=== PATIENT | female | born 1975 | race African-American/Black ===

== ENCOUNTER 2017-03-31 15:09 | Emergency (ER) | payer SELFPAY ==
[2017-03-31] MEDS ORDERED: HYDROcodone/Acetaminophen 7.5/325 mg Tablet ONE (16:27)
[2017-03-31] MEDS ORDERED: Ibuprofen 800 MG TAB ONE (16:27)
== END 2017-03-31 17:21 | disposition home or self-care (01) ==
LOC: ERS 15:09
DX: M25.561 Pain in right knee (principal); I10 Essential (primary) hypertension; E11.9 Type 2 diabetes mellitus without complications; Z79.84 Long term (current) use of oral hypoglycemic drugs; Z79.899 Other long term (current) drug therapy
CPT/HCPCS: 99283

== ENCOUNTER 2017-06-14 14:25 | Emergency (ER) | payer SELFPAY ==
[2017-06-14] MEDS ORDERED: predniSONE 20 MG TAB ONE (16:26)
[2017-06-14] MEDS ORDERED: hydrOXYzine 25 MG TAB ONE ×2 (16:30→16:32)
[2017-06-14] MEDS ORDERED: hydrOXYzine 25 MG TAB PO SCH (16:45)
== END 2017-06-14 16:53 | disposition home or self-care (01) ==
LOC: ERS 14:25
DX: L20.9 Atopic dermatitis, unspecified (principal); E11.9 Type 2 diabetes mellitus without complications; I10 Essential (primary) hypertension; M32.9 Systemic lupus erythematosus, unspecified; Z79.84 Long term (current) use of oral hypoglycemic drugs; Z79.899 Other long term (current) drug therapy
CPT/HCPCS: 99283; J7506

== ENCOUNTER 2017-08-21 17:34 | Emergency (ER) | payer MEDICAID, SELFPAY ==
[2017-08-21] MEDS ORDERED: Lidocaine 1% w/Epinephrine 1:100K 20 ML VIAL ONE (18:23)
[2017-08-21] MEDS ORDERED: Clindamycin 150 MG CAP ONE (19:48)
== END 2017-08-21 20:18 | disposition home or self-care (01) ==
LOC: ERS 17:34
DX: L02.31 Cutaneous abscess of buttock (principal); E11.9 Type 2 diabetes mellitus without complications; I10 Essential (primary) hypertension; M32.9 Systemic lupus erythematosus, unspecified
CPT/HCPCS: 99282; J2001

== ENCOUNTER 2017-08-30 15:20 | Emergency (ER) | payer MEDICAID, SELFPAY ==
[2017-08-30] MEDS ORDERED: Famotidine 20 MG TAB ONE (15:58)
[2017-08-30] MEDS ORDERED: predniSONE 20 MG TAB ONE (15:58)
[2017-08-30] MEDS ORDERED: diphenhydrAMINE 25 MG CAP ONE (15:58)
[2017-08-30] MEDS ORDERED: hydrOXYzine 25 MG TAB ONE (17:02)
== END 2017-08-30 17:49 | disposition home or self-care (01) ==
LOC: ERS 15:20
DX: L50.0 Allergic urticaria (principal); I10 Essential (primary) hypertension; M32.9 Systemic lupus erythematosus, unspecified; E11.9 Type 2 diabetes mellitus without complications
CPT/HCPCS: 99283; J7506

== ENCOUNTER 2017-09-05 18:36 | Emergency (ER) | payer MEDICAID | END 2017-09-05 22:44 | disposition left against medical advice (07) | LOC: ERS 18:36 | DX: Z53.21 Procedure and treatment not carried out due to patient leaving prior to being seen by health care provider (principal) ==

== ENCOUNTER 2017-09-25 10:00 | Outpatient (CLI) | payer MEDICAID | END 2017-09-25 10:01 | disposition home or self-care (01) | LOC: BICRAD 10:00 | PROVIDERS: ATTEND Specialist | DX: M25.50 Pain in unspecified joint; M89.8X6 Other specified disorders of bone, lower leg; M17.12 Unilateral primary osteoarthritis, left knee | CPT/HCPCS: 72052 ==

== ENCOUNTER 2017-12-20 12:52 | Emergency (ER) | payer MEDICAID, SELFPAY ==
[2017-12-20] MEDS ORDERED: diphenhydrAMINE 25 MG CAP ONE (13:43)
[2017-12-20] MEDS ORDERED: predniSONE 20 MG TAB ONE (13:43)
[2017-12-20] MEDS ORDERED: Famotidine 20 MG TAB ONE (13:43)
[2017-12-20] MEDS ORDERED: hydrOXYzine 25 MG TAB ONE (14:38)
== END 2017-12-20 15:24 | disposition home or self-care (01) ==
LOC: ERS 12:52
DX: L50.0 Allergic urticaria (principal); E11.9 Type 2 diabetes mellitus without complications; I10 Essential (primary) hypertension
CPT/HCPCS: 99283; J7506

== ENCOUNTER 2018-01-24 21:02 | Emergency (ER) | payer BC, SELFPAY ==
[2018-01-24] MEDS ORDERED: Ketorolac Tromethamine 30 MG/ML VIAL ONE (22:04)
== END 2018-01-24 22:34 | disposition home or self-care (01) ==
LOC: ERS 21:02
DX: S43.401A Unspecified sprain of right shoulder joint, initial encounter (principal); M65.4 Radial styloid tenosynovitis [de Quervain]; I10 Essential (primary) hypertension; M32.9 Systemic lupus erythematosus, unspecified; X50.0XXA Overexertion from strenuous movement or load, initial encounter; X50.3XXA Overexertion from repetitive movements, initial encounter; Y92.89 Other specified places as the place of occurrence of the external cause
CPT/HCPCS: 96372; J1885

== ENCOUNTER 2018-03-18 07:43 | Outpatient (CLI) | payer BC ==
--- NOTE | 2018-03-18 10:54 | MRI ---
MRI OF THE RIGHT WRIST WITHOUT CONTRAST: INDICATION: Right wrist pain since August of 2017. There is no known injury. TECHNIQUE: Multiplanar, multisequence MR images were obtained of the right wrist. No radiographic or MR compari sons are available. FINDINGS: There is slight ulnar positive configuration of the DRUJ. There is essential perforation of the TFC with a horizontal component extending into the volar and peripheral aspect of the TFC best seen on im age 14 of series 8. Radioulnar ligaments appear intact. There are subchondral cyst-like abnormaliti es involving the ulnar aspect of the proximal lunate with diffuse edema of the lunate carpal bone arianna picious for changes of ulnar compartment abutment. There is slight increased fluid in the extensor c arpal ulnaris tendon sheath consistent with changes of ECU tenosynovitis. Mild edema is also present within the EDC tendon sheath. Remaining extensor tendons are normal appearing. The carpal tunnel c ontents appear within normal limits. FCU and FCR tendons are intact. The intrinsic hand musculature appears intact. There is nonvisualization of the proximal attachment of the long radial lunate and portions of the radialscaphocapitate ligament. Findings are suspicious for a volar capsular injury. There is edema within the surrounding soft tissues. There is a ganglion present along the volar asp ect of the ganglion best seen on image 12 of series 9 measuring approximately 1.3 cm. Scapholunate a nd lunotriquetral ligament, however, appear intact. Posterior mid carpal ligament appears intact. T he dorsal radiocarpal ligament appears intact. IMPRESSION: 1. Findings suggesting ulnar compartment abutment syndrome along with ulnar positive configuration o f the distal radial ulnar joint, triangular fibrocartilage tear, and impaction injury to the lunate. 2. Mild ECU tenosynovitis. 3. Findings suspicious for a volar capsular injury (possibly remote) involving the radioscaphocapita te and long radiolunate ligaments. The radioscaphocapitate ligament appears partially attached consi stent with a grade II sprain. There is a grade III sprain of the long radiolunate ligament. 4. Volar radial ganglion seen near the capsular injury site. 5. Mild EDC tenosynovitis. POS: [facility]
== END 2018-03-18 07:44 | disposition home or self-care (01) ==
LOC: BICMRI 07:43
PROVIDERS: ATTEND Orthopaedic Surgery Hand Surgery
DX: M25.531 Pain in right wrist (principal); S63.591A Other specified sprain of right wrist, initial encounter; M67.431 Ganglion, right wrist; M65.9 Synovitis and tenosynovitis, unspecified

== ENCOUNTER 2018-03-18 12:21 | Emergency (ER) | payer BC ==
[2018-03-18 14:32] LABS: Bilirubin Negative (Negative); Blood, Urine Negative (Negative); Clarity CLEAR (Clear); Glucose, Urine (Dipstick) Negative (Negative); Leukocyte Negative (Negative); Nitrite Negative (Negative); Protein, Urine (Dipstick) Negative (Neg-Trace); Specific Gravity, Urine 1.009 (1.002-1.036); Urobilinogen 0.2 mg/dL (0.2-1.0)
[2018-03-18] MEDS ORDERED: Ibuprofen 200 MG TAB ONE (14:57)
== END 2018-03-18 13:49 | disposition home or self-care (01) ==
LOC: ERS 12:21
DX: R51 Headache (principal); M25.561 Pain in right knee; M25.511 Pain in right shoulder; I10 Essential (primary) hypertension; Z79.899 Other long term (current) drug therapy; Z79.84 Long term (current) use of oral hypoglycemic drugs
CPT/HCPCS: 81003; 87804; 99284

== ENCOUNTER 2018-04-03 08:51 | Outpatient (CLI) | payer BC | END 2018-04-03 08:52 | disposition home or self-care (01) | LOC: BICMAMMO 08:51 | PROVIDERS: ATTEND Transplant Surgery | DX: Z12.31 Encounter for screening mammogram for malignant neoplasm of breast (principal) | CPT/HCPCS: 77063; 77067 ==

== ENCOUNTER 2018-05-29 07:42 | Outpatient (CLI) | payer BC ==
--- NOTE | 2018-05-29 10:12 | MRI ---
MRI CERVICAL SPINE: History: Cervical radiculopathy. Technique: Multiplanar, multisequence noncontrast enhanced MRI images were obtained of the cervical s pine. FINDINGS: The spinal cord is unremarkable with no evidence of cord masses or lesions. C1-2: Unremarkable. C2-3: Unremarkable. C3-4: Unremarkable. C4-5: There is a mild broad based disc bulge. No significant degree of central or neural foraminal na rrowing seen. C5-6: Unremarkable. C6-7: There is a minimal broad based disc bulge not significantly compressing the thecal sac. The celeste ral foramen are patent. ' C7-T1: Unremarkable. IMPRESSION: Mild C4-5 and C6-7 disc bulges without evidence of significant central stenosis. No evidence of neura l foraminal narrowing seen. POS: [facility]
== END 2018-05-29 07:43 | disposition home or self-care (01) ==
LOC: BICMRI 07:42
PROVIDERS: ATTEND Orthopaedic Surgery Hand Surgery
DX: M50.121 Cervical disc disorder at C4-C5 level with radiculopathy (principal)
CPT/HCPCS: 72141

== ENCOUNTER 2018-06-03 10:42 | Outpatient (CLI) | payer BC ==
[2018-06-03 12:07] LABS: #Basophils 0.1 thou/uL (0.0-0.2); #Eosinphils 0.2 thou/uL (0.0-0.7); #Lymphocytes 2.2 thou/uL (1.20-3.40); #Monocytes 0.4 thou/uL (0.11-0.59); #Neutrophils 7.6 thou/uL (1.40-6.50); %Eosinophils 1.6 % (0.0-10.0); %Lymphocytes 21.4 % (21.0-51.0); %Monocytes 3.3 % (0.0-10.0); %Neutrophils 72.6 % (42.0-75.0); Hemoglobin 13.5 g/dL (12.0-16.0); Mean Corpuscular HGB CONC 33.7 g/dL (32.0-36.0); Mean Corpuscular Hemoglobin 26.3 pg (27.0-31.0); Mean Platelet Volume 7.7 fL (7.4-10.4); Platelet Count 315 thou/uL (130-400); RBC Distribution Width 13.4 % (11.5-14.5); Red Blood Cell (RBC) Count 5.15 mill/uL (4.20-5.40); White Blood Cell (WBC) Count 10.5 thou/uL (4.8-10.8)
== END 2018-06-03 10:43 | disposition home or self-care (01) ==
LOC: LABBT 10:42
PROVIDERS: ATTEND Orthopaedic Surgery Hand Surgery
DX: Z01.812 Encounter for preprocedural laboratory examination (principal); S63.591A Other specified sprain of right wrist, initial encounter
CPT/HCPCS: 85025; 85652

== ENCOUNTER 2018-06-11 05:49 | Day surgery (SDC) | payer BC ==
[2018-06-03 11:11] VITALS: BMI 38.9
[2018-06-11] MEDS ORDERED: CEFAZOLIN 2 GM/50 ML BAG ONE (06:26)
[2018-06-11] MEDS ORDERED: EPINEPHrine 1 MG/ML AMP ONE (06:53)
[2018-06-11] MEDS ORDERED: Bacitracin Zinc Ointment 30 gm TUBE ONE (06:53)
[2018-06-11] MEDS ORDERED: Bupivacaine PF 0.5% 30 ML VIAL ONE (06:53)
[2018-06-11] MEDS ORDERED: Midazolam HCl 2 mg/2 ml Vial ONE (06:54)
[2018-06-11] MEDS ORDERED: Fentanyl 100 MCG/2 ML VIAL ONE ×3 (07:05→11:06)
[2018-06-11] MEDS ORDERED: Bupivacaine HCl 0.5%/Epinephrine 1:200,000/PF 30 ml Vial ONE (10:18)
[2018-06-11] MEDS ORDERED: Ketorolac Tromethamine 30 MG/ML VIAL ONE ×2 (10:48→12:43)
[2018-06-11] MEDS ORDERED: PROPOFOL 200 MG/20 ML VIAL ONE (12:43)
[2018-06-11] MEDS ORDERED: Esmolol 100 MG/10 ML VIAL ONE (12:43)
[2018-06-11] MEDS ORDERED: Dexamethasone 20 MG/5 ML VIAL ONE (12:43)
[2018-06-11] MEDS ORDERED: Glycopyrrolate 0.2 MG/ML 5 ML SYRINGE ONE (12:43)
[2018-06-11] MEDS ORDERED: Ondansetron PF 4 MG/2 ML Vial ONE (12:43)
[2018-06-11] MEDS ORDERED: ePHEDrine/0.9% NaCl/PF SYRINGE 50 mg/10 ml ONE (12:43)
[2018-06-11] MEDS ORDERED: PHENYLEPHRINE-NS 100 MCG/ML 10 ML SYRINGE ONE (12:43)
[2018-06-11] MEDS ORDERED: HYDROcodone/Acetaminophen 5/325 mg Tablet ONE (14:08)
--- NOTE | 2018-06-13 09:03 | OP ---
DATE OF PROCEDURE: 06/11/2018 PREOPERATIVE DIAGNOSES: 1. Right lunate chondral tear. 2. Volar capsule tear, small ulnar aspect. 3. Volar radial ganglion. 4. Central to radial aspect transfer because tear is approximately 6.5 mm with non-repairable to ulnolunate impingement. POSTOPERATIVE DIAGNOSES: 1. Right lunate chondral tear. 2. Volar capsule tear, small ulnar aspect. 3. Volar radial ganglion. 4. Central to radial aspect transfer because tear is approximately 6.5 mm with non-repairable to ulnolunate impingement. PROCEDURES PERFORMED: 1. Arthroscopic synovectomy, right wrist. 2. Right wrist radial and volar ganglion arthroscopic resection. 3. Arthroscopic triangular fibrocartilage tear debridement. 4. Open volar capsule tear resection. 5. Ulnar shortening osteotomy, Rayhack technique. ESTIMATED BLOOD LOSS: 25 mL. FINDINGS: 1. Lunate to ulnar side chondral tear indicative of ulnocarpal impingement. 2. Volar triquetral chondral tear with capsule flap. 3. Volar 1.0 cm erythematous sac with stalk of ganglion consistent with volar ganglion, 2 mm ulnar joint positive without instability, stable lunotriquetral joint. DESCRIPTION OF PROCEDURE: After successful general endotracheal anesthesia by [place] anesthesia, the limb was prepped and draped. The patient had a block given out as part of this procedure. The patient had the operative standard wrist arthroscopy towel, in-line traction performed. Prep and drape accomplished along with time-out appropriately. Establishment of standard 3-4, 6U, 6R portals and then began panoramic view of the wrist which was distorted because of synovitis in all compartments, so arthroscopic synovectomy was completed. Once this was done, we could see 6 mm of central to radial tear of the entire fibrocartilage which was irreparable, so we debrided it with a shaver to a stable rim. Then, there was a volar flap tear coming from the ulnar aspect of the triquetrum while the lunotriquetral joint was intact, but there were some chondral loss on the ulnar aspect of lunate. We resected this chondral tear and we then attempt to resect the care of the joint capsule, but could not reach this, so we performed a small mini-arthrotomy and then removed this. Before we did the arthrotomy, however, we saw on the radial side a stalk and erythema consistent with a ganglion, so we resected this with a scope with a shaver as well. Once we had performed an arthrotomy and end-to-end repair, we resected the small capsular flap tear. There was no instability seen directly and then we deflated the tourniquet to close the joint. A 2-0 Vicryl undyed was used for this interrupted pattern and we used a 3-0 Vicryl to close the retinaculum over the stiff compartment and then the skin was closed subcutaneously with 4-0 Monocryl and 4-0 nylon for the epidermis. We then directed our attention to the patient's ulna, 2 mm positive wrist. We inflated the tourniquet, kept in in-line traction of the arm and made a zigzag incision to reach the periosteum. Periosteum was opened directly with [place] blade. We exposed periosteum and made sure we had not entered the sternal joint. We did a Raytec osteotomy using the standard three holes proximal, cutting plate guide with a saw oscillating mode. We then removed the 2 mm piece, placed the final plate on along with coapting the compression device, compressed it so that we can anatomically close and then place the remaining 3 screws distal to include a lag screw across the osteotomy site. Radiographs showed anatomic position with no hardware migration. We released the tourniquet and obtained hemostasis. We then closed the fascia with running 0- Vicryl undyed, subcutaneous tissue with 3-0 Monocryl undyed, and skin reapproximated with 4-0 nylon interrupted mattress pattern. Bulky dressing was applied along with a sugar-tong splint. The patient left the operating room without evidence of anesthetic complications. Job ID: [id number]
== END 2018-06-11 14:45 | disposition home or self-care (01) ==
LOC: SDC 05:49
PROVIDERS: ATTEND Orthopaedic Surgery Hand Surgery
PROC: 0RBN4ZZ Excision of Right Wrist Joint, Percutaneous Endoscopic Approach (ICD-10-PCS; principal; 2018-06-11)
PROC: 0PSK04Z Reposition Right Ulna with Internal Fixation Device, Open Approach (ICD-10-PCS; principal; 2018-06-11)
DX: S63.591A Other specified sprain of right wrist, initial encounter (principal); M67.431 Ganglion, right wrist; M25.831 Other specified joint disorders, right wrist; M65.88 Other synovitis and tenosynovitis, other site; E11.9 Type 2 diabetes mellitus without complications; G43.909 Migraine, unspecified, not intractable, without status migrainosus; M32.9 Systemic lupus erythematosus, unspecified; M50.123 Cervical disc disorder at C6-C7 level with radiculopathy; Z88.2 Allergy status to sulfonamides; Z88.8 Allergy status to other drugs, medicaments and biological substances; Z91.048 Other nonmedicinal substance allergy status; Z79.899 Other long term (current) drug therapy; Z79.84 Long term (current) use of oral hypoglycemic drugs
CPT/HCPCS: 76001; 96372; 96374; C1713; J0171; J0670; J1100; J1885; J2250; J2405; J2704; J3010; S0020

== ENCOUNTER 2018-09-11 11:47 | Emergency (ER) | payer BC ==
[2018-09-11] MEDS ORDERED: Dexamethasone 4 mg/ml Vial ONE (15:18)
[2018-09-11] MEDS ORDERED: Ketorolac Tromethamine 30 MG/ML VIAL ONE ×2 (15:18→15:21)
[2018-09-11] MEDS ORDERED: Diazepam 5 MG TAB ONE (15:19)
[2018-09-11] MEDS ORDERED: Dexamethasone 10 MG/ML VIAL ONE (15:37)
== END 2018-09-11 15:58 | disposition home or self-care (01) ==
LOC: ERS 11:47
DX: M54.42 Lumbago with sciatica, left side (principal); E11.9 Type 2 diabetes mellitus without complications; I10 Essential (primary) hypertension; Z79.84 Long term (current) use of oral hypoglycemic drugs; Z79.899 Other long term (current) drug therapy
CPT/HCPCS: 96372; J1100; J1885

== ENCOUNTER 2018-10-17 09:35 | Outpatient (CLI) | payer BC ==
--- NOTE | 2018-10-17 09:58 | RAD ---
TWO VIEWS CHEST: DATE: 10/17/2018. PROVIDED CLINICAL HISTORY: Cough and shortness of breath. FINDINGS: Comparison 09/07/2012. Cardiac and mediastinal silhouette is within normal limits. Lungs appear aj r. No pleural fluid or pneumothorax apparent. Calcified granulomata are again seen in the right par amediastinal region. IMPRESSION: No evidence for an acute cardiopulmonary process. POS: [facility]
== END 2018-10-17 09:36 | disposition home or self-care (01) ==
LOC: BICRAD 09:35
PROVIDERS: ATTEND Specialist
DX: R05 Cough (principal); R06.02 Shortness of breath
CPT/HCPCS: 71046

== ENCOUNTER 2018-11-11 12:34 | Outpatient (CLI) | payer BC ==
--- NOTE | 2018-11-11 16:53 | MRI ---
MRI OF THE RIGHT WRIST WITHOUT CONTRAST: Indication: History of right wrist surgery in May 2018 with closed, nondisplaced fracture of the scaphoid. Comparison: Prior MR of the right wrist, 03-18-18. FINDINGS: There is motion artifact that slightly limits imaged detail. There is post procedural change involvi ng the distal ulnar shaft producing susceptibility artifact that slightly limits evaluation of the la teral aspect of the ulnar carpal joint. There is reduction in the extent of the ulnar positive configuration at the DRUJ. There is also less prominence of the previously seen central perforation with associated horizontal tear component invol ving the body of the triangular fibrocartilage indicative of interval repair. The radioulnar ligament s and the peripheral styloid attachments of the TFC are intact. Scapholunate, lunotriquetral ligaments are intact. Previously seen volar radial carpal wrist ligament ous injury appears to have intervally healed or has undergone repair since the prior exam. Carpal ali gnment is normal. Subchondral cyst like abnormalities of the lunate are roughly stable. Visualized aspects of the ECU tendon appear within normal limits. The remaining extensor tendons appe ar within normal limits. The carpal tunnel contents as well as the ulnar neural vasculature appears w ithin normal limits. No definite acute fracture is evident. IMPRESSION: 1. No acute fracture demonstrated involving the scaphoid. 2. Post procedural change involving the distal ulna with improved alignment at the DRUJ. 3. Post procedure change of interval repair of the previously see TFC tear. The central perforation i nvolving the TFC is less prominent. Horizontal component is less prominent. 4. Improvement in the ECU and EDC tenosynovitis. 5. Stable subchondral cyst like abnormalities involving the lunate, likely reflective of changes of p rior ulnar abutment. 6. Less T2 signal abnormality involving the radiolunate and radioscaphocapitate ligaments of the vola r radial carpal joint indicative of either interval healing or repair. POS: [facility]
== END 2018-11-11 12:35 | disposition home or self-care (01) ==
LOC: TBSIIMAG 12:34
PROVIDERS: ATTEND Orthopaedic Surgery Hand Surgery
DX: S62.001A Unspecified fracture of navicular [scaphoid] bone of right wrist, initial encounter for closed fracture (principal); M65.4 Radial styloid tenosynovitis [de Quervain]; Z98.890 Other specified postprocedural states

== ENCOUNTER 2018-11-20 07:15 | Emergency (ER) | payer BC ==
[2018-11-20] MEDS ORDERED: Ketorolac Tromethamine 30 MG/ML VIAL ONE (09:26)
[2018-11-20] MEDS ORDERED: Metoclopramide HCl 10 MG/2 ML VIAL ONE (09:26)
[2018-11-20] MEDS ORDERED: diphenhydrAMINE 50 MG/ML VIAL ONE (09:27)
[2018-11-20] MEDS ORDERED: Cyclobenzaprine 10 MG TAB ONE (10:49)
== END 2018-11-20 11:37 | disposition home or self-care (01) ==
LOC: ERS 07:15
DX: R51 Headache (principal); M54.5 Low back pain; E11.9 Type 2 diabetes mellitus without complications; I10 Essential (primary) hypertension; Z79.899 Other long term (current) drug therapy; Z79.84 Long term (current) use of oral hypoglycemic drugs
CPT/HCPCS: 96365; 96366; 96375; J1200; J1885; J2765

== ENCOUNTER 2018-11-21 08:39 | Outpatient (CLI) | payer BC ==
--- NOTE | 2018-11-21 09:49 | CT ---
CT CHEST WITH IV CONTRAST HISTORY: Pulmonary nodule COMPARISON: None FINDINGS: No mediastinal, hilar or axillary mass or lymphadenopathy is seen. There is no evidence of aneurysmal dilatation of the thoracic aorta. No pleural or pericardial effusions are identified. No pneumothoraces, lobar consolidation or pulmonary nodules/masses are seen. There is a small area of pa tchy groundglass infiltrate in the lingula. There are mild degenerative changes in the spine. Upper abdominal tomograms demonstrate changes of cholecystectomy and a calcified granuloma in the spleen. IMPRESSION: 1. No evidence of lung mass or nodule. 2. Small area of patchy groundglass infiltrate in the lingula.
[2018-11-21] MEDS ORDERED: ISOVUE-370 76%-LOCM 1 ML ONE (11:38)
== END 2018-11-21 08:40 | disposition home or self-care (01) ==
LOC: BICCT 08:39
PROVIDERS: ATTEND Orthopaedic Surgery Hand Surgery
DX: R91.1 Solitary pulmonary nodule (principal); R91.8 Other nonspecific abnormal finding of lung field
CPT/HCPCS: 71260; Q9966

== ENCOUNTER 2019-02-18 12:46 | Emergency (ER) | payer BC ==
[2019-02-18] MEDS ORDERED: Ketorolac Tromethamine 30 MG/ML VIAL ONE (13:49)
[2019-02-18] MEDS ORDERED: Metoclopramide HCl 10 MG/2 ML VIAL ONE (13:49)
[2019-02-18] MEDS ORDERED: diphenhydrAMINE 25 MG CAP ONE (13:49)
[2019-02-18] MEDS ORDERED: Ondansetron PF 4 MG/2 ML Vial ONE ×2 (13:49→15:09)
[2019-02-18] MEDS ORDERED: Acetaminophen 500 MG TAB ONE (13:49)
--- NOTE | 2019-02-18 14:27 | CT ---
Exam: Head CT scan without IV contrast: HISTORY: Headache, migraine headache FINDINGS: No focal mass or midline shift. No intra or extra-axial hemorrhage. Sinuses and mastoids are clear of acute process. IMPRESSION: No significant acute intracranial process. No mass or bleed.
[2019-02-18] MEDS ORDERED: Morphine 4 MG/ML VIAL ONE (15:08)
[2019-02-18] MEDS ORDERED: Dexamethasone 10 MG/ML VIAL ONE (15:09)
== END 2019-02-18 16:50 | disposition home or self-care (01) ==
LOC: ERS 12:46
DX: G43.909 Migraine, unspecified, not intractable, without status migrainosus (principal); F41.9 Anxiety disorder, unspecified; E11.9 Type 2 diabetes mellitus without complications; I10 Essential (primary) hypertension; Z79.899 Other long term (current) drug therapy; Z79.84 Long term (current) use of oral hypoglycemic drugs
CPT/HCPCS: 70450; 96365; 96375; 96376; J1100; J1885; J2270; J2405; J2765; Q0163

== ENCOUNTER 2019-02-22 16:18 | Emergency (ER) | payer BC ==
[2019-02-22] MEDS ORDERED: HYDROcodone/Acetaminophen 10/325 mg Tablet ONE (19:01)
[2019-02-22] MEDS ORDERED: HYDROcodone/Acetaminophen 5/325 mg Tablet ONE (19:06)
[2019-02-22] MEDS ORDERED: Acetaminophen 500 MG TAB ONE (19:06)
== END 2019-02-22 19:17 | disposition home or self-care (01) ==
LOC: ERS 16:18
DX: M54.12 Radiculopathy, cervical region (principal); G89.29 Other chronic pain; G43.909 Migraine, unspecified, not intractable, without status migrainosus; E11.9 Type 2 diabetes mellitus without complications; F41.9 Anxiety disorder, unspecified; Z79.899 Other long term (current) drug therapy; Z79.84 Long term (current) use of oral hypoglycemic drugs
CPT/HCPCS: 99283

== ENCOUNTER 2019-03-04 12:38 | Emergency (ER) | payer BC ==
[2019-03-04] MEDS ORDERED: Metoclopramide HCl 10 MG/2 ML VIAL ONE (13:24)
[2019-03-04] MEDS ORDERED: Acetaminophen 500 MG TAB ONE (13:24)
[2019-03-04] MEDS ORDERED: diphenhydrAMINE 50 MG/ML VIAL ONE (13:24)
[2019-03-04 13:32] LABS: #Basophils 0.1 thou/uL (0.0-0.2); #Eosinphils 0.1 thou/uL (0.0-0.7); #Lymphocytes 2.2 thou/uL (1.20-3.40); #Monocytes 0.4 thou/uL (0.11-0.59); #Neutrophils 6.1 thou/uL (1.40-6.50); %Basophils 1.2 % (0.0-1.0); %Eosinophils 1.6 % (0.0-10.0); %Lymphocytes 25.1 % (21.0-51.0); %Monocytes 4.4 % (0.0-10.0); %Neutrophils 67.8 % (42.0-75.0); Hemoglobin 12.9 g/dL (12.0-16.0); Mean Corpuscular HGB CONC 33.9 g/dL (32.0-36.0); Mean Corpuscular Hemoglobin 26.6 pg (27.0-31.0); Mean Corpuscular Volume 78.3 fL (78.0-98.0); Mean Platelet Volume 7.9 fL (7.4-10.4); Platelet Count 262 thou/uL (130-400); RBC Distribution Width 12.5 % (11.5-14.5); Red Blood Cell (RBC) Count 4.87 mill/uL (4.20-5.40); White Blood Cell (WBC) Count 8.9 thou/uL (4.8-10.8)
--- NOTE | 2019-03-04 13:41 | CT ---
CT HEAD WITHOUT IV CONTRAST COMPARISON: 02/18/2019 HISTORY: Headache and blurred vision right side. TECHNIQUE: Axial CT imaging at 5 mm intervals from vertex through skull base without contrast FINDINGS: There is no evidence of an acute infarction, hemorrhage, mass effect, or midline shift. The ventricul ar system is normal in size, shape, and position. Visualized paranasal sinuses are clear. Osseous structures appear intact. CT head is stable compared to prior exam. IMPRESSION: 1. No acute intracranial abnormality demonstrated.
[2019-03-04 14:04] LABS: ALT (SGPT) 20 U/L (8-55); AST (SGOT) 21 U/L (5-34); Alkaline Phosphatase 90 U/L (40-150); Anion Gap 14 mmol/L (10-20); BUN (Urea Nitrogen) 21 mg/dL (7.0-18.7); Bilirubin, Total 0.2 mg/dL (0.2-1.2); Calc. Creatinine Clearance 0 mL/min (70-130); Calcium 9.9 mg/dL (7.8-10.44); Carbon Dioxide 24 mmol/L (22-29); Chloride 100 mmol/L (98-107); Estimated GFR-MDRD 38; Glucose 199 mg/dL (70-105); Potassium 4.2 mmol/L (3.5-5.1); Sodium 134 mmol/L (136-145)
[2019-03-04] MEDS ORDERED: Ketorolac Tromethamine 30 MG/ML VIAL ONE (15:00)
--- NOTE | 2019-03-08 15:07 | EKG ---
Test Reason : Blood Pressure : / mmHG Vent. Rate : 089 BPM Atrial Rate : 089 BPM P-R Int : 162 ms QRS Dur : 084 ms QT Int : 366 ms P-R-T Axes : 045 007 026 degrees QTc Int : 445 ms Normal sinus rhythm Low voltage QRS Confirmed by LALIT GLEASON DO ([id number]), copy editor ADRIENNE BARTLETT ([id number]) on 03/08/2019 3:07:35 PM Referred By: Confirmed By:LALIT GLEASON DO
== END 2019-03-04 15:50 | disposition home or self-care (01) ==
LOC: ERS 12:38
DX: E86.0 Dehydration (principal); R51 Headache; N17.9 Acute kidney failure, unspecified; E11.9 Type 2 diabetes mellitus without complications; M32.9 Systemic lupus erythematosus, unspecified; I10 Essential (primary) hypertension; F41.9 Anxiety disorder, unspecified; Z79.84 Long term (current) use of oral hypoglycemic drugs; Z79.899 Other long term (current) drug therapy
CPT/HCPCS: 36415; 36416; 70450; 80053; 84484; 85025; 93005; 96361; 96374; 96375; J1200; J1885; J2765

== ENCOUNTER 2019-03-17 12:35 | Outpatient (CLI) | payer BC ==
--- NOTE | 2019-03-17 13:13 | RAD ---
EXAM: 2 views of the left knee HISTORY: Left knee pain COMPARISON: None FINDINGS: No knee effusion is seen. There is no evidence of acute fracture or dislocation. Mild trico mpartmental osteophytes are seen. IMPRESSION: Mild left knee osteoarthritis
--- NOTE | 2019-03-17 13:13 | RAD ---
2 views right knee: 03/17/2019 COMPARISON: None HISTORY: Knee pain FINDINGS: No fracture or dislocation. There is mild posterior patellar osteophyte formation. There is mild medial compartment narrowing. No acute fracture or dislocation. IMPRESSION: No acute osseous abnormality. Mild degenerative change.
--- NOTE | 2019-03-17 13:14 | RAD ---
2 views of the lumbar spine: 03/17/2019 HISTORY: Low back pain with bilateral radiculopathy involving the lower extremities FINDINGS: Clips in the right upper quadrant suggest prior cholecystectomy. Lumbar pedicles appear int act on frontal imaging. There is lower lumbar spine facet hypertrophy, left greater than right, involving the L4-5 and L5-S1 levels. There is disc space narrowing at L5-S1. No acute fracture. IMPRESSION: Lumbar spine degenerative change as above.
--- NOTE | 2019-03-17 13:21 | RAD ---
EXAM: 5 views of the cervical spine HISTORY: Cervicalgia with numbness and tingling in both hands for 5 years COMPARISON: None FINDINGS: AP, lateral, oblique, and open mouth odontoid views of the cervical spine shows normal heig ht and alignment of the vertebral bodies and intervertebral discs without fracture or subluxation. No degenerative changes are seen. No prevertebral soft tissue swelling is seen. Alignment is unchang ed with flexion and extension. IMPRESSION: No significant cervical spine abnormality.
== END 2019-03-17 12:36 | disposition home or self-care (01) ==
LOC: BICRAD 12:35
PROVIDERS: ATTEND Nurse Practitioner
DX: M25.561 Pain in right knee (principal); M25.562 Pain in left knee; M54.5 Low back pain; M54.2 Cervicalgia; M47.816 Spondylosis without myelopathy or radiculopathy, lumbar region; M17.0 Bilateral primary osteoarthritis of knee
CPT/HCPCS: 72050; 72100

== ENCOUNTER 2019-03-20 08:07 | Outpatient (CLI) | payer OTHER ==
--- NOTE | 2019-03-20 10:41 | MRI ---
MRI OF RIGHT SHOULDER: DATE: 03/20/2019. PROVIDED CLINICAL HISTORY: Right shoulder pain. FINDINGS: There is low-grade partial-thickness bursal surface tearing involving the posterior supraspinatus ten don approximately 2.5 cm from the footplate. The components of the rotator cuff appear otherwise int act. The longhead biceps tendon appears intact and normally located. The glenoid labrum and glenohumeral articular cartilage are suboptimally evaluated in the absence of joint distension but appear grossly normal. The amount of fluid within the glenohumeral joint appear s physiologic. Acromioclavicular osteoarthrosis is demonstrated with mass effect upon the subjacent supraspinatus. There is a physiologic amount of subacromial subdeltoid bursal fluid. Rotator cuff muscular volume a ppears preserved. No focal concerning regional marrow or muscular signal abnormality apparent. IMPRESSION: 1. Low-grade partial thickness bursal surface tearing involving the posterior supraspinatus tendon. 2. Acromioclavicular joint osteoarthrosis with mass effect upon the subjacent supraspinatus. POS: [facility]
== END 2019-03-20 08:08 | disposition home or self-care (01) ==
LOC: BICMRI 08:07
PROVIDERS: ATTEND Family Medicine
DX: S46.911D Strain of unspecified muscle, fascia and tendon at shoulder and upper arm level, right arm, subsequent encounter (principal); M19.011 Primary osteoarthritis, right shoulder

== ENCOUNTER 2019-04-08 07:58 | Outpatient (CLI) | payer BC ==
--- NOTE | 2019-04-08 10:58 | CT ---
EXAM: CT right forearm without contrast HISTORY: Right forearm fracture. Evaluate for nonhealing COMPARISON: None TECHNIQUE: Multiple contiguous axial images were obtained and a CT of the right forearm without contr ast. Sagittal and coronal reformats were performed. FINDINGS: A fracture is seen of the distal third of the ulnar diaphysis. This is spanned with a plate and screws. The middle screw extends into the region of the fracture. Persistent lucency is seen about the fracture consistent with nonunion. A small amount of surrounding callus is seen surrounding the fracture. IMPRESSION: Nonunion of ulnar fracture.
== END 2019-04-08 07:59 | disposition home or self-care (01) ==
LOC: SCSCT 07:58
PROVIDERS: ATTEND Orthopaedic Surgery Hand Surgery
DX: S52.291K Other fracture of shaft of right ulna, subsequent encounter for closed fracture with nonunion (principal)

== ENCOUNTER 2019-04-13 20:30 | Outpatient (CLI) | payer BC | END 2019-04-13 20:31 | disposition home or self-care (01) | LOC: SLEEPLAB 20:30 | PROVIDERS: ATTEND Nurse Practitioner Family | DX: G47.33 Obstructive sleep apnea (adult) (pediatric) (principal); G47.429 Narcolepsy in conditions classified elsewhere without cataplexy; R53.83 Other fatigue; E11.9 Type 2 diabetes mellitus without complications; Z68.41 Body mass index [BMI] 40.0-44.9, adult | CPT/HCPCS: 95810 ==

== ENCOUNTER 2019-05-30 09:05 | Outpatient (CLI) | payer BC ==
[2019-05-30 12:11] LABS: Bacteria/HPF None Seen HPF (None Seen); Bilirubin Negative (Negative); Blood, Urine Negative (Negative); Clarity Clear (Clear); Glucose, Urine (Dipstick) Greater than 1000 mg/dL (Negative); Leukocyte Negative Leu/uL (Negative); Nitrite Negative (Negative); Protein, Urine (Dipstick) Negative (Neg-Trace); RBC/HPF 0-3 HPF (0-3); Squamous Epithelial 0-3 HPF (0-3); Urobilinogen Normal mg/dL (Less than 2); WBC/HPF 0-3 HPF (0-3)
[2019-05-30 12:14] LABS: Hemoglobin 13.3 g/dL (12.0-16.0); Mean Corpuscular HGB CONC 32.2 g/dL (32.0-36.0); Mean Corpuscular Hemoglobin 24.6 pg (27.0-31.0); Mean Corpuscular Volume 76.3 fL (78.0-98.0); Mean Platelet Volume 7.5 fL (7.4-10.4); Platelet Count 372 thou/uL (130-400); Red Blood Cell (RBC) Count 5.42 mill/uL (4.20-5.40); White Blood Cell (WBC) Count 10.4 thou/uL (4.8-10.8)
[2019-05-30 12:26] LABS: Anion Gap 15 mmol/L (10-20); BUN (Urea Nitrogen) 26 mg/dL (7.0-18.7); Calc. Creatinine Clearance 0 mL/min (70-130); Calcium 9.9 mg/dL (7.8-10.44); Carbon Dioxide 22 mmol/L (22-29); Chloride 99 mmol/L (98-107); Estimated GFR-MDRD 36; Glucose 124 mg/dL (70-105); Potassium 4.3 mmol/L (3.5-5.1); Sodium 132 mmol/L (136-145)
[2019-05-30 13:30] LABS: Band 5 % (5-11); Lymphocytes 15 % (21-51); MDiff Complete? YES; Microcytosis SLIGHT = 6-15 cells (100X) (0-5/hpf); Monocytes 7 % (0-10); Neutrophil 68 % (42-75); Platelet Morphology Comment Appears Adequate; Polychromasia SLIGHT = 2-3 cells (100X) (0-2/hpf); Reactive Lymphocytes 5 % (0-10); Target Cells SLIGHT = 2-5 cells (100X) (0-1/hpf)
--- NOTE | 2019-05-30 17:59 | EKG ---
Test Reason : Blood Pressure : / mmHG Vent. Rate : 078 BPM Atrial Rate : 078 BPM P-R Int : 178 ms QRS Dur : 078 ms QT Int : 376 ms P-R-T Axes : 068 051 024 degrees QTc Int : 428 ms Normal sinus rhythm Normal ECG When compared with ECG of 04-MAR-2019 12:48, No significant change was found Confirmed by Beka EASON ([id number]) on 05/30/2019 5:59:15 PM Referred By: REG Confirmed By:Beka EASON
== END 2019-05-30 09:06 | disposition home or self-care (01) ==
LOC: LABBT 09:05
PROVIDERS: ATTEND Orthopaedic Surgery Hand Surgery
DX: Z01.818 Encounter for other preprocedural examination (principal); S52.201D Unspecified fracture of shaft of right ulna, subsequent encounter for closed fracture with routine healing; Z98.890 Other specified postprocedural states
CPT/HCPCS: 80048; 81001; 85025; 93005; 93010

== ENCOUNTER 2019-06-03 07:05 | Inpatient (IN) | payer BC ==
[2019-06-03] MEDS ORDERED: Bacitracin Zinc Ointment 30 gm TUBE ONE (09:17)
[2019-06-03] MEDS ORDERED: Bupivacaine PF 0.5% 30 ML VIAL ONE (09:17)
[2019-06-03] MEDS ORDERED: Sodium Chloride 0.9% 0 ML ONE (09:17)
[2019-06-03] MEDS ORDERED: Fentanyl 100 MCG/2 ML VIAL ONE ×3 (09:19→15:40)
[2019-06-03] MEDS ORDERED: Midazolam HCl 2 mg/2 ml Vial ONE ×2 (09:19)
[2019-06-03] MEDS ORDERED: Lidocaine 1% PF 5 ML VIAL ONE (10:24)
[2019-06-03] MEDS ORDERED: Ondansetron PF 4 MG/2 ML Vial ONE (10:24)
[2019-06-03] MEDS ORDERED: Bupivacaine HCl 0.5%/Epinephrine 1:200,000/PF 30 ml Vial ONE (10:24)
[2019-06-03] MEDS ORDERED: PROPOFOL 200 MG/20 ML VIAL ONE (10:24)
[2019-06-03] MEDS ORDERED: Ketorolac Tromethamine 30 MG/ML VIAL ONE (10:24)
[2019-06-03] MEDS ORDERED: Dexamethasone 20 MG/5 ML VIAL ONE (10:24)
[2019-06-03] MEDS ORDERED: Thrombin 5000 UNITS/5 ML VIAL ONE ×2 (11:56→13:26)
[2019-06-03] MEDS ORDERED: CEFAZOLIN 1 GM VIAL ONE (13:15)
[2019-06-03] MEDS ORDERED: Ondansetron PF 4 MG/2 ML Vial IV PRN (14:49)
[2019-06-03] MEDS ORDERED: Acetaminophen 325 MG TAB PO PRN (14:49)
[2019-06-03] MEDS ORDERED: Milk Of Magnesia 30 ML UDCUP PO PRN (14:49)
[2019-06-03] MEDS ORDERED: Fentanyl 100 MCG/2 ML VIAL SLOW IVP PRN (14:49)
[2019-06-03] MEDS ORDERED: Morphine 4 MG/ML VIAL SLOW IVP PRN (14:49)
[2019-06-03] MEDS ORDERED: traMADol HCl 50 MG TAB PO PRN (14:49)
[2019-06-03] MEDS ORDERED: Meperidine HCl/PF 25 MG/ML VIAL IM PRN (14:52)
--- NOTE | 2019-06-03 14:58 | RAD ---
RIGHT FOREARM TWO VIEWS: HISTORY: Hardware removal and bone graft. COMPARISON: None. FINDINGS: Multiple views of the right forearm were submitted for interpretation. A plate and screws is seen in the mid portion of the ulna. There appears to be a small bone fragment along the mid portion of a fra cture that is spanned by the plate and screws. POS: [facility]
[2019-06-03] MEDS ORDERED: Communication Order-Pharmacy FS SCH (15:00)
[2019-06-03 19:20] VITALS: BMI 40.8
[2019-06-03] MEDS: Vancomycin 1.5 GRAM/300 ML BAG 1.5 GM in Premix Bag 1 BAG IVPB SCH (19:43)
[2019-06-03] MEDS: HYDROcodone/Acetaminophen 5/325 mg Tablet PO PRN (20:09)
[2019-06-03] MEDS: Aspirin 81 mg Enteric Coated Tablet PO SCH (21:28)
[2019-06-03] MEDS ORDERED: ALPRAZolam 1 MG TAB PO PRN (22:22)
[2019-06-03] MEDS ORDERED: PROVENTIL INHALER 6.7 G (200 INHALATIONS) INH PRN (22:22)
[2019-06-03] MEDS ORDERED: ASPIRIN PO PRN (22:24)
[2019-06-03] MEDS ORDERED: CAFFEINE PO PRN (22:24)
[2019-06-03] MEDS ORDERED: cloNIDine 0.1 MG TAB PO PRN (22:25)
[2019-06-03] MEDS ORDERED: Gabapentin 100 MG CAP PO SCH (22:45)
[2019-06-03] MEDS ORDERED: Montelukast Sodium 10 mg Tablet PO SCH (22:45)
[2019-06-03] MEDS ORDERED: hydrOXYzine 25 MG TAB PO SCH (22:45)
[2019-06-03] MEDS ORDERED: Famotidine 20 MG TAB PO SCH (22:45)
[2019-06-04] MEDS: HYDROcodone/Acetaminophen 5/325 mg Tablet PO PRN ×3 (05:18→18:44)
[2019-06-04 06:23] LABS: #Basophils 0.1 thou/uL (0.0-0.2); #Eosinphils 0.2 thou/uL (0.0-0.7); #Lymphocytes 2.7 thou/uL (1.20-3.40); #Monocytes 0.8 thou/uL (0.11-0.59); %Basophils 0.7 % (0.0-1.0); %Eosinophils 1.6 % (0.0-10.0); %Lymphocytes 25.3 % (21.0-51.0); %Monocytes 7.4 % (0.0-10.0); Hemoglobin 11.1 g/dL (12.0-16.0); Mean Corpuscular HGB CONC 32.1 g/dL (32.0-36.0); Mean Corpuscular Hemoglobin 25.3 pg (27.0-31.0); Mean Corpuscular Volume 78.8 fL (78.0-98.0); Mean Platelet Volume 7.2 fL (7.4-10.4); Platelet Count 295 thou/uL (130-400); RBC Distribution Width 13.2 % (11.5-14.5); Red Blood Cell (RBC) Count 4.39 mill/uL (4.20-5.40); White Blood Cell (WBC) Count 10.8 thou/uL (4.8-10.8)
--- NOTE | 2019-06-04 08:38 | OP ---
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 Gross motion at the plate with screws, that are no longer functional, and a plate that is loose. PROCEDURES PERFORMED: 1. Removal of nonunion material to include resection of bone 2.5 mm on either side and the previous 1.5 mm opening leaving a split of at least a 5 mm minimal central and almost 1 cm direct volar gap (too big for our radial based bone graft.). 2. Open treatment of nonunion of the of the ulna to removal of previous deep implant (ulna RAYHACK plate). 3. Open treatment with iliac crest bone graft and Synthes long 9-hole plate (long in the previous plate by 2 holes on either side of the construct). 4. Application of long-arm splint. SPECIMEN REMOVED: Necrotic nonunion area, leaving with almost 12 mm wide at its outer cortex, 8 mm at its inner cortex bone defect. TOURNIQUET TIME: 70 minutes. BLOOD LOSS: 250 mL. DESCRIPTION OF PROCEDURE: After successful general LMA technique, the limb was prepped and draped. We also prepped the iliac crest site. We injected the iliac crest with 20 mL of 0.5% Marcaine to begin the wrist portion. We inflated the tourniquet to 250 mmHg pressure after exsanguinated the limb, placed the limb in an arthroscopy type ozuna in order to visualize the better position. The plate was put in and then removed the previous scar as we made our incision through skin and subcutaneous tissue down to fascia. The plate was clearly loose and it was a nonunion hooks fibrinous material and copious amounts of fluid, consistent with possible early pseudojoint. We then removed the plate. We found at that point it was 1.5 to 2 mm gap formation and they were not in association with each other. We then debrided this area using the excisional technique, used a rongeur to take down soft tissue as well as some bone, used a curette to re-establish the canal for at least 2 cm depth on both proximal and distal fracture, used a small bone cutter to cut a few shards of sharp edges and drilled, first a K-wire, then a 2-0 drill to create canaliculi for bone regrowth. Once we finished this, we did petal the distal 5-mm periarticular region, made our final measurement, and it was approximately 14 mm deep, 8 mm wide at the greatest outer and ulnar dimension and prepared bone graft after we made incision of and noticed the cortex was not strong enough for true tricortical or bicortical wedge of this size. We then made a standard 5-cm approach over the iliac crest, beginning with 2 cm proximal to the anterior superior portion. We carried through skin and subcutaneous tissue, fascia, and tagged the fascia. We then the fascia from the iliac wing fpc between the posterior and anterior normal limits. Using a saw blade, I cut a piece of bone that was slightly bigger in dimension as needed. We took it to the back table, denuded of all soft tissue, placed anticoagulant in the wound along with normal saline to prevent bleeding and then placed this piece of wedge next to the bone and began to remove excess, so it fit, and the excess that was removed was placed inside the defect for bone grafting. Once we had done the appropriate shape, it was wedged in tight with the plate holding the reduction without screw fixation. We then placed the plate in compression around this piece and it extruded slightly 1 mm, leaving a 1.5 mm rim, extended proximally and a 2 to 2.5 mm rim extending distally, but the entire inner surface was 95% covered completely. Once we had secured this with the proper drill measure screw technique with the Synthes small-frag set, a small-frag plate allowed multiple rotation without gapping, the ulnar head had maintained its bony position which was much less than of the radius and the patient had the wound closed in multiple layers to include thrombin and Gelfoam in the defect from the pelvis with a running #1 Vicryl and then the fascia was closed with the same #1 Vicryl and the skin was reapproximated with 4-0 nylon. The patient left the operating room without evidence of anesthetic or operative complication with a splint long-arm on the left. Job ID: [id number]
[2019-06-04] MEDS ORDERED: LINAGLIPTIN PO SCH (09:00)
[2019-06-04] MEDS ORDERED: ICOSAPENT ETHYL PO SCH (09:00)
[2019-06-04] MEDS ORDERED: TETANUS AND DIPHTHERIA TOX/PF 0.5 ML DISP.SYRIN IM SCH (09:00)
[2019-06-04] MEDS ORDERED: EMPAGLIFLOZIN PO SCH (09:00)
[2019-06-04] MEDS ORDERED: ARMODAFINIL 200 MG PO SCH (09:00)
[2019-06-04] MEDS: Famotidine 20 MG TAB PO SCH ×2 (09:59→20:32)
[2019-06-04] MEDS: Gabapentin 100 MG CAP PO SCH ×2 (09:59→20:32)
[2019-06-04] MEDS: CeleCOXIB 100 MG CAP PO SCH (10:00)
[2019-06-04] MEDS: Hydrochlorothiazide 25 MG TAB PO SCH (10:00)
[2019-06-04] MEDS: metFORMIN 500 MG TAB PO SCH ×2 (10:00→18:41)
[2019-06-04] MEDS: Aspirin 81 mg Enteric Coated Tablet PO SCH ×2 (10:00→20:31)
[2019-06-04] MEDS: hydrOXYzine 25 MG TAB PO SCH ×2 (10:01→20:39)
[2019-06-04] MEDS: Pioglitazone HCl 15 MG TAB PO SCH (12:00)
[2019-06-04] MEDS: Vancomycin 1.5 GRAM/300 ML BAG 1.5 GM in Premix Bag 1 BAG IVPB SCH (18:43)
[2019-06-04] MEDS: Ibuprofen 200 MG TAB PO PRN (20:39)
[2019-06-04] MEDS ORDERED: Montelukast Sodium 10 mg Tablet PO SCH (21:00)
[2019-06-04] MEDS ORDERED: Rosuvastatin 20 MG TAB PO SCH (21:00)
[2019-06-05] MEDS: HYDROcodone/Acetaminophen 5/325 mg Tablet PO PRN ×2 (08:38→15:00)
[2019-06-05] MEDS: metFORMIN 500 MG TAB PO SCH ×2 (08:45→17:24)
[2019-06-05] MEDS: Pioglitazone HCl 15 MG TAB PO SCH (08:45)
[2019-06-05] MEDS: hydrOXYzine 25 MG TAB PO SCH ×2 (08:45→17:47)
[2019-06-05] MEDS: CeleCOXIB 100 MG CAP PO SCH (08:45)
[2019-06-05] MEDS: Aspirin 81 mg Enteric Coated Tablet PO SCH (08:46)
[2019-06-05] MEDS: Gabapentin 100 MG CAP PO SCH (08:46)
[2019-06-05] MEDS: Hydrochlorothiazide 25 MG TAB PO SCH (08:46)
[2019-06-05] MEDS: Famotidine 20 MG TAB PO SCH (08:46)
[2019-06-05 11:24] VITALS: TEMP 98.3
[2019-06-05] MEDS: Ibuprofen 200 MG TAB PO PRN (15:48)
[2019-06-05 16:10] LABS: Vancomycin, Trough 10.7 ug/mL
[2019-06-05] MEDS: Vancomycin 1.5 GRAM/300 ML BAG 1.5 GM in Premix Bag 1 BAG IVPB SCH (17:24)
--- NOTE | 2019-06-06 01:13 | DIS ---
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 DISCHARGE DIAGNOSES: 1. Failure of implant, RAYHACK device. 2. Nonunion with no healing and evidence of wear on the ulna and gross motion. 3. Diabetes mellitus. 4. Obesity. HOSPITAL COURSE: The patient was admitted on the date of admission, June 03, 2019. After obtaining appropriate medical clearance, she underwent open reduction, removal of implant, bone marrow harvested from the right iliac crest to create almost 1 cm outer cortex and a 4 mm inner cortex wedge tricortical bone with a longer plate in open treatment internal fixation and bone grafting of a nonunion once she had undergone nonunion techniques to prepare the bone. This gave excellent fixation and the bone was left approximately 1 mm, proud to ensure that we had a good wedge fit with slightly more bone than needed. She maintained her ulnar negative height that was seen before the surgery and we debrided any bone that was evidence of a hypertrophic reactive bone from gross motion from the mobile plate. Drain had been placed in the pelvis and it was removed spontaneously doing physical therapy on the date of discharge. She was neurologically intact on date of discharge to include full digit flexion, extension, no stretch plane, intact hip flexion, knee extension, knee flexion, ankle extension and toe extension. There was no stretch pain to lower extremity and no evidence of lateral cutaneous nerve abnormality. With the drain out, dressing still intact and this was a situation for discharge. DISCHARGE DISPOSITION: She will be on a 2000 calorie ADA diet. She will wear the sling when up and out of bed. She can ambulate progressively from 50 feet moving forward, so she already cleared 50 feet shant today and the patient will be given a sling, use ice. Discharge medications in addition to her pre-admission medications are Lortab, 7.5/325 one tablet every 6 hours as needed, it was dispensed #28 and clindamycin 250 mg antibiotics. She is allergic to both Bactrim soft sulfa products. Follow up with us in 1 week in clinic and at that point, she will have a dressing change and further treatment. Job ID: [id number]
== END 2019-06-05 19:42 | disposition home or self-care (01) | DRG 496 ==
LOC: SDC 07:05 → T4-A 17:06
PROVIDERS: ADMIT Orthopaedic Surgery Hand Surgery; ATTEND Orthopaedic Surgery Hand Surgery
PROC: 0PPK04Z Removal of Internal Fixation Device from Right Ulna, Open Approach (ICD-10-PCS; principal; 2019-06-03)
PROC: 0PBK0ZZ Excision of Right Ulna, Open Approach (ICD-10-PCS; 2019-06-03)
PROC: 0PSK04Z Reposition Right Ulna with Internal Fixation Device, Open Approach (ICD-10-PCS; 2019-06-03)
PROC: 0PUK07Z Supplement Right Ulna with Autologous Tissue Substitute, Open Approach (ICD-10-PCS; 2019-06-03)
PROC: 0QB33ZZ Excision of Left Pelvic Bone, Percutaneous Approach (ICD-10-PCS; 2019-06-03)
PROC: 0QB23ZZ Excision of Right Pelvic Bone, Percutaneous Approach (ICD-10-PCS; 2019-06-03)
DX: T84.192A Other mechanical complication of internal fixation device of bone of right forearm, initial encounter (principal); S52.291K Other fracture of shaft of right ulna, subsequent encounter for closed fracture with nonunion; Z68.41 Body mass index [BMI] 40.0-44.9, adult; E66.9 Obesity, unspecified; E11.9 Type 2 diabetes mellitus without complications; Y83.8 Other surgical procedures as the cause of abnormal reaction of the patient, or of later complication, without mention of misadventure at the time of the procedure
CPT/HCPCS: 36415; 36416; 76000; 80202; 85025; C1713; J0670; J0690; J1100; J1885; J2001; J2250; J2270; J2405; J2704; J3010; J3490; S0020

== ENCOUNTER 2019-10-16 11:59 | Outpatient (CLI) | payer BC ==
--- NOTE | 2019-10-16 12:39 | RAD ---
TWO VIEWS LUMBAR SPINE: DATE: 10/16/2019. COMPARISON: None. HISTORY: Pain and radiculopathy. FINDINGS: Five lumbar-type vertebral bodies are present with intact pedicles on frontal imaging. Lateral imagi ng demonstrates facet hypertrophy at L4-5 and L5-S1. There is disk space narrowing at the L5-S1 leve l. At T11-12 and T12-L1, there is mild disk space narrowing and anterior osteophyte formation. No a cute fracture or dislocation. No anterolisthesis or retrolisthesis. IMPRESSION: Lumbar spine degenerative change as above. POS: [facility]
== END 2019-10-16 12:00 | disposition home or self-care (01) ==
LOC: BICRAD 11:59
PROVIDERS: ATTEND Specialist
DX: M54.9 Dorsalgia, unspecified (principal); M47.816 Spondylosis without myelopathy or radiculopathy, lumbar region
CPT/HCPCS: 72100

== ENCOUNTER 2019-11-04 12:40 | Outpatient (CLI) | payer BC ==
--- NOTE | 2019-11-04 13:48 | MRI ---
MRI Lumbar Spine Noncontrast: HISTORY: Arthritis of lumbar spine. Patient states low back pain with pain down bilateral legs. COMPARISON: None FINDINGS: A severely atrophic left kidney is present, but this is a stable finding compared to CT abdomen on . Remainder of the visualized retroperitoneal structures demonstrate a normal MRI appearance. There are several increased T2-weighted signal intensity structures seen in the left ovar y likely due to multiple follicles largest follicle measuring 1.5 cm. Trace amount of fluid is seen adjacent to left ovary likely physiologic in origin. Conus medullaris is normal in morphology and terminates at the L1 level. Mild endplate degenerative change are seen in the L5-S1 level. Normal signal intensity is otherwise d emonstrated in the bone marrow. L1-2: There is no disc bulge or disc herniation. Central spinal canal and neural foramina are patent. L2-3: There is no disc bulge or disc herniation. Central spinal canal and neural foramina are patent. L3-4: There is no disc bulge or disc herniation. Central spinal canal and neural foramina are patent. Mild facet degenerative changes are present. L4-5: There is no disc bulge or disc herniation. Central spinal canal and neural foramina are patent. Mild facet degenerative changes are present. L5-S1: There is loss of intervertebral disc height. A broad-based disc osteophyte complex is present with central disc protrusion. This encroaches on the traversing bilateral S1 nerve roots without significant deformity or displacement of the nerve roots. There is no narrowing of the thecal sac. Fa cet degenerative changes are present at this level with mild encroachment on each neural foramen. IMPRESSION: 1. Degenerative changes lower lumbar spine greatest at the lumbosacral junction. There is no high-gra de central canal or neural foraminal narrowing. The disc bulge with central disc protrusion at the L5-S1 level does encroach on the traversing bilateral S1 nerve roots. 2. Severely atrophic left kidney which is stable compared to study in 2015.
== END 2019-11-04 12:41 | disposition home or self-care (01) ==
LOC: BICMRI 12:40
PROVIDERS: ATTEND Specialist
DX: M47.816 Spondylosis without myelopathy or radiculopathy, lumbar region (principal); M47.817 Spondylosis without myelopathy or radiculopathy, lumbosacral region; M51.27 Other intervertebral disc displacement, lumbosacral region
CPT/HCPCS: 72148

== ENCOUNTER 2020-06-10 06:55 | Outpatient (CLI) | payer BC ==
[2020-06-10 20:25] LABS: SARS-CoV-2 MS2 Positive; SARS-CoV-2 N Gene Negative; SARS-CoV-2 S Gene Negative; SARS-CoV-2 by NAA Not Detected (NotDetected); SARS-CoV-2 orf1ab Negative
== END 2020-06-10 06:56 | disposition home or self-care (01) ==
LOC: LABBT 06:55
PROVIDERS: ATTEND Internal Medicine Gastroenterology
DX: R10.10 Upper abdominal pain, unspecified (principal); K62.5 Hemorrhage of anus and rectum; K21.9 Gastro-esophageal reflux disease without esophagitis; M32.9 Systemic lupus erythematosus, unspecified; R63.5 Abnormal weight gain; Z20.828 Contact with and (suspected) exposure to other viral communicable diseases
CPT/HCPCS: 87635; U0003

== ENCOUNTER 2020-12-01 19:00 | Emergency (ER) | payer BC ==
[2020-12-01 20:58] LABS: #Basophils 0.1 thou/uL (0.0-0.2); #Eosinphils 0.3 thou/uL (0.0-0.7); #Lymphocytes 2.4 thou/uL (1.20-3.40); #Monocytes 0.5 thou/uL (0.11-0.59); #Neutrophils 6.7 thou/uL (1.40-6.50); %Basophils 0.8 % (0.0-1.0); %Eosinophils 2.8 % (0.0-10.0); %Lymphocytes 24.2 % (21.0-51.0); %Monocytes 5.3 % (0.0-10.0); %Neutrophils 66.9 % (42.0-75.0); Hemoglobin 12.2 g/dL (12.0-16.0); Mean Corpuscular HGB CONC 33.7 g/dL (32.0-36.0); Mean Corpuscular Hemoglobin 25.6 pg (27.0-31.0); Mean Platelet Volume 7.7 fL (7.4-10.4); Platelet Count 312 thou/uL (130-400); RBC Distribution Width 15.1 % (11.5-14.5); Red Blood Cell (RBC) Count 4.74 mill/uL (4.20-5.40); White Blood Cell (WBC) Count 10.1 thou/uL (4.8-10.8)
[2020-12-02] MEDS ORDERED: Acetaminophen 500 MG TAB ONE (01:11)
== END 2020-12-02 01:21 | disposition home or self-care (01) ==
LOC: ERS 19:00
DX: M79.89 Other specified soft tissue disorders (principal); R20.2 Paresthesia of skin; E11.9 Type 2 diabetes mellitus without complications; I10 Essential (primary) hypertension; G43.909 Migraine, unspecified, not intractable, without status migrainosus
CPT/HCPCS: 36415; 83880; 85025; 86140; 93970

== ENCOUNTER 2021-03-28 12:20 | Emergency (ER) | payer BC ==
[2021-03-28] MEDS ORDERED: Acetaminophen 325 MG TAB ONE (18:03)
[2021-03-28] MEDS ORDERED: Ketorolac Tromethamine 30 MG/ML VIAL ONE (18:03)
[2021-03-28] MEDS ORDERED: HYDROcodone/Acetaminophen 5/325 mg Tablet ONE (18:03)
[2021-03-28 18:32] LABS: Bilirubin Negative (Negative); Blood, Urine Negative (Negative); Clarity Clear (Clear); Glucose, Urine (Dipstick) Greater than 1000 mg/dL (Negative); Ketone, Urine Negative (Negative); Leukocyte Negative Leu/uL (Negative); Nitrite Negative (Negative); Protein, Urine (Dipstick) Negative (Neg-Trace); Specific Gravity, Urine 1.025 (1.002-1.036); Urobilinogen Normal mg/dL (Less than 2); pH, Urine 5.5 (5.0-9.0)
[2021-03-28 18:33] LABS: Pregnancy Test - Urine (BHCG) Negative (Negative); Pregu Control Background? CLEAR/WHITE (CLR/WHITE); Pregu Control Bar Appear? YES (CONTROL BAR); Specific Gravity 1.025 (1.002-1.036)
== END 2021-03-28 21:09 | disposition home or self-care (01) ==
LOC: ERS 12:20
DX: M54.50 Low back pain, unspecified (principal); R81 Glycosuria; E11.9 Type 2 diabetes mellitus without complications; I10 Essential (primary) hypertension
CPT/HCPCS: 81003; 81025; 96372; 99283; J1885

== ENCOUNTER 2021-06-10 09:54 | Outpatient (CLI) | payer BC | END 2021-06-10 09:55 | disposition home or self-care (01) | LOC: TBSIIMAG 09:54 | PROVIDERS: ATTEND Orthopaedic Surgery Hand Surgery | DX: M87.031 Idiopathic aseptic necrosis of right radius (principal) ==

== ENCOUNTER 2021-06-19 13:06 | Emergency (ER) | payer BC ==
[2021-06-19] MEDS ORDERED: Morphine 4 MG/ML VIAL ONE ×2 (13:56→16:02)
[2021-06-19] MEDS ORDERED: Diazepam 5 MG TAB ONE (13:56)
[2021-06-19] MEDS ORDERED: Ondansetron PF 4 MG/2 ML Vial ONE (13:56)
[2021-06-19 14:03] LABS: #Eosinphils 0.2 thou/uL (0.0-0.7); #Lymphocytes 1.7 thou/uL (1.20-3.40); #Monocytes 0.5 thou/uL (0.11-0.59); #Neutrophils 6.9 thou/uL (1.40-6.50); %Basophils 0.5 % (0.0-1.0); %Eosinophils 2.1 % (0.0-10.0); %Lymphocytes 18.4 % (21.0-51.0); %Monocytes 4.8 % (0.0-10.0); %Neutrophils 74.2 % (42.0-75.0); Hemoglobin 12.4 g/dL (12.0-16.0); Mean Corpuscular HGB CONC 33.6 g/dL (32.0-36.0); Mean Corpuscular Volume 80.4 fL (78.0-98.0); Platelet Count 351 thou/uL (130-400); RBC Distribution Width 12.7 % (11.5-14.5); Red Blood Cell (RBC) Count 4.59 mill/uL (4.20-5.40); White Blood Cell (WBC) Count 9.3 thou/uL (4.8-10.8)
[2021-06-19 14:23] LABS: ALT (SGPT) 13 U/L (8-55); AST (SGOT) 14 U/L (5-34); Albumin 3.6 g/dL (3.5-5.0); Alkaline Phosphatase 95 U/L (40-110); Anion Gap 13 mmol/L (10-20); BUN (Urea Nitrogen) 6 mg/dL (7.0-18.7); Bilirubin, Total 0.3 mg/dL (0.2-1.2); Calc. Creatinine Clearance 0 mL/min (70-130); Calcium 10.2 mg/dL (7.8-10.44); Carbon Dioxide 29 mmol/L (22-29); Chloride 99 mmol/L (98-107); Globulin 3.8 g/dL (2.4-3.5); Glucose 153 mg/dL (70-105); Potassium 3.7 mmol/L (3.5-5.1); Protein, Total 7.4 g/dL (6.0-8.3); Sodium 137 mmol/L (136-145)
== END 2021-06-19 16:21 | disposition home or self-care (01) ==
LOC: ERS 13:06
DX: M54.9 Dorsalgia, unspecified (principal); I10 Essential (primary) hypertension; E11.9 Type 2 diabetes mellitus without complications; G43.909 Migraine, unspecified, not intractable, without status migrainosus; Z79.899 Other long term (current) drug therapy
CPT/HCPCS: 36415; 72132; 80053; 85025; 96374; 96375; 96376; J2270; J2405

== ENCOUNTER 2021-08-01 16:12 | Inpatient (IN) | payer BC ==
[2021-08-01 16:45] LABS: #Basophils 0.1 thou/uL (0.0-0.2); #Eosinphils 0.1 thou/uL (0.0-0.7); #Lymphocytes 2.8 thou/uL (1.20-3.40); #Monocytes 0.9 thou/uL (0.11-0.59); #Neutrophils 12.4 thou/uL (1.40-6.50); %Basophils 0.4 % (0.0-1.0); %Eosinophils 0.5 % (0.0-10.0); %Lymphocytes 17.4 % (21.0-51.0); %Monocytes 5.4 % (0.0-10.0); %Neutrophils 76.4 % (42.0-75.0); Hemoglobin 14.7 g/dL (12.0-16.0); Mean Corpuscular HGB CONC 32.4 g/dL (32.0-36.0); Mean Corpuscular Hemoglobin 24.6 pg (27.0-31.0); Mean Corpuscular Volume 75.9 fL (78.0-98.0); Mean Platelet Volume 7.4 fL (7.4-10.4); Platelet Count 455 thou/uL (130-400); Red Blood Cell (RBC) Count 5.97 mill/uL (4.20-5.40); White Blood Cell (WBC) Count 16.2 thou/uL (4.8-10.8)
[2021-08-01 17:08] LABS: ALT (SGPT) 8 U/L (8-55); AST (SGOT) 10 U/L (5-34); Albumin 4.5 g/dL (3.5-5.0); Alkaline Phosphatase 116 U/L (40-110); Anion Gap 20 mmol/L (10-20); BUN (Urea Nitrogen) 15 mg/dL (7.0-18.7); Bilirubin, Total 0.4 mg/dL (0.2-1.2); Calc. Creatinine Clearance 0 mL/min (70-130); Calcium 10.4 mg/dL (7.8-10.44); Carbon Dioxide 18 mmol/L (22-29); Chloride 96 mmol/L (98-107); Globulin 4.4 g/dL (2.4-3.5); Glucose 193 mg/dL (70-105); Potassium 4.4 mmol/L (3.5-5.1); Protein, Total 8.9 g/dL (6.0-8.3); Sodium 130 mmol/L (136-145)
[2021-08-01] MEDS ORDERED: Ondansetron PF 4 MG/2 ML Vial ONE (19:13)
[2021-08-01 20:52] LABS: Bacteria/HPF 2+ HPF (None Seen); Bilirubin 1+ (Negative); Blood, Urine Negative (Negative); Clarity Clear (Clear); Glucose, Urine (Dipstick) Greater than 1000 mg/dL (Negative); Ketone, Urine 60 mg/dL (Negative); Leukocyte Negative Leu/uL (Negative); Nitrite Negative (Negative); Protein, Urine (Dipstick) 30 mg/dL (Neg-Trace); RBC/HPF 0-3 HPF (0-3); Specific Gravity, Urine 1.032 (1.002-1.036); Squamous Epithelial 0-3 HPF (0-3); WBC/HPF 0-3 HPF (0-3); pH, Urine 5.5 (5.0-9.0)
[2021-08-01] MEDS ORDERED: cefTRIAXone\\ROCEPHIN 2 GM VIAL ONE (21:19)
[2021-08-01 21:37] LABS: SARS-CoV-2 NAA Rapid Test Not Detected (NotDetected)
[2021-08-02] MEDS ORDERED: Ondansetron ODT 4 MG TAB SL PRN (02:15)
[2021-08-02] MEDS ORDERED: Acetaminophen 325 MG TAB PO PRN (02:15)
[2021-08-02] MEDS ORDERED: Ondansetron PF 4 MG/2 ML Vial ONE (02:16)
[2021-08-02] MEDS: Ondansetron PF 4 MG/2 ML Vial IVP PRN ×4 (02:27→19:31)
[2021-08-02] MEDS: Sodium Chloride 0.9% 1,000 ML IV SCH ×5 (02:27→22:24)
[2021-08-02 04:47] VITALS: BMI 42.9
[2021-08-02 06:48] LABS: #Basophils 0.1 thou/uL (0.0-0.2); #Eosinphils 0.1 thou/uL (0.0-0.7); #Lymphocytes 2.2 thou/uL (1.20-3.40); #Monocytes 0.8 thou/uL (0.11-0.59); #Neutrophils 9.3 thou/uL (1.40-6.50); %Basophils 0.5 % (0.0-1.0); %Eosinophils 0.7 % (0.0-10.0); %Lymphocytes 17.4 % (21.0-51.0); %Monocytes 6.6 % (0.0-10.0); %Neutrophils 74.9 % (42.0-75.0); Hemoglobin 12.6 g/dL (12.0-16.0); Mean Corpuscular HGB CONC 32.5 g/dL (32.0-36.0); Mean Corpuscular Hemoglobin 24.7 pg (27.0-31.0); Mean Corpuscular Volume 76.1 fL (78.0-98.0); Mean Platelet Volume 7.6 fL (7.4-10.4); Platelet Count 352 thou/uL (130-400); RBC Distribution Width 12.9 % (11.5-14.5); Red Blood Cell (RBC) Count 5.09 mill/uL (4.20-5.40); White Blood Cell (WBC) Count 12.5 thou/uL (4.8-10.8)
[2021-08-02 07:39] LABS: MDiff Complete? YES; Microcytosis SLIGHT = 6-15 cells (100X) (0-5/hpf); Platelet Morphology Comment Appears Adequate; Polychromasia SLIGHT = 2-3 cells (100X) (0-2/hpf)
[2021-08-02] MEDS ORDERED: Dextrose 50% Abboject 50 ML SYRINGE IVP PRN (09:00)
[2021-08-02] MEDS ORDERED: Insulin Regular 300 UNITS/3 ML VIAL SC PRN ×2 (09:00)
[2021-08-02] MEDS ORDERED: Dextrose 5% in Water 1,000 ML IV PRN (09:00)
[2021-08-02] MEDS: metFORMIN 500 MG TAB PO SCH ×2 (09:47→17:35)
[2021-08-02 10:47] LABS: #Eosinphils 0.1 thou/uL (0.0-0.7); #Lymphocytes 2.1 thou/uL (1.20-3.40); #Monocytes 0.6 thou/uL (0.11-0.59); #Neutrophils 8.1 thou/uL (1.40-6.50); %Basophils 0.4 % (0.0-1.0); %Eosinophils 0.8 % (0.0-10.0); %Lymphocytes 19.3 % (21.0-51.0); %Monocytes 5.7 % (0.0-10.0); %Neutrophils 73.7 % (42.0-75.0); Hemoglobin 12.5 g/dL (12.0-16.0); Mean Corpuscular Hemoglobin 24.1 pg (27.0-31.0); Mean Corpuscular Volume 75.4 fL (78.0-98.0); Mean Platelet Volume 7.4 fL (7.4-10.4); Platelet Count 358 thou/uL (130-400); RBC Distribution Width 12.9 % (11.5-14.5); Red Blood Cell (RBC) Count 5.18 mill/uL (4.20-5.40)
[2021-08-02 11:06] LABS: Hemoglobin A1c 8.2 % (4.0-6.0)
[2021-08-02 11:22] LABS: Anion Gap 18 mmol/L (10-20); BUN (Urea Nitrogen) 12 mg/dL (7.0-18.7); Calc. Creatinine Clearance 102 mL/min (70-130); Calcium 9.1 mg/dL (7.8-10.44); Carbon Dioxide 18 mmol/L (22-29); Chloride 101 mmol/L (98-107); Glucose 128 mg/dL (70-105); Potassium 4.3 mmol/L (3.5-5.1); Sodium 133 mmol/L (136-145)
[2021-08-02] MEDS: Prochlorperazine Maleate 5 MG TAB PO PRN (17:35)
[2021-08-02] MEDS: Empagliflozin 25 MG TAB PO SCH (19:38)
[2021-08-02] MEDS: ALPRAZolam 1 MG TAB PO SCH (19:38)
[2021-08-02] MEDS: Alogliptin 25 MG TAB PO SCH (19:38)
[2021-08-02] MEDS: cefTRIAXone\\ROCEPHIN 2 GM in Sodium Chloride 0.9% 100 ML IVPB SCH (19:45)
[2021-08-02] MEDS: HYDROcodone/Acetaminophen 5/325 mg Tablet PO PRN (19:51)
[2021-08-03] MEDS: Ondansetron PF 4 MG/2 ML Vial IVP PRN ×3 (06:29→20:16)
[2021-08-03] MEDS: HYDROcodone/Acetaminophen 5/325 mg Tablet PO PRN ×3 (06:29→20:14)
[2021-08-03] MEDS: metFORMIN 500 MG TAB PO SCH ×3 (08:03→17:18)
[2021-08-03] MEDS: Mupirocin 2% Ointment 22 GM Tube TOP SCH ×3 (09:17→20:04)
[2021-08-03] MEDS: Sodium Chloride 0.9% 1,000 ML IV SCH (11:12)
[2021-08-03] MEDS: cefTRIAXone\\ROCEPHIN 2 GM in Sodium Chloride 0.9% 100 ML IVPB SCH (20:04)
[2021-08-03] MEDS: Empagliflozin 25 MG TAB PO SCH (20:05)
[2021-08-03] MEDS: Alogliptin 25 MG TAB PO SCH (20:05)
[2021-08-03] MEDS: ALPRAZolam 1 MG TAB PO SCH (20:05)
[2021-08-03] MEDS: Prochlorperazine Maleate 5 MG TAB PO PRN (21:47)
[2021-08-04] MEDS: Sodium Chloride 0.9% 1,000 ML IV SCH ×2 (03:09→14:27)
[2021-08-04] MEDS: HYDROcodone/Acetaminophen 5/325 mg Tablet PO PRN ×3 (05:53→21:49)
[2021-08-04] MEDS: Ondansetron PF 4 MG/2 ML Vial IVP PRN ×3 (05:53→21:34)
[2021-08-04] MEDS: metFORMIN 500 MG TAB PO SCH ×2 (08:10→16:39)
[2021-08-04] MEDS: Mupirocin 2% Ointment 22 GM Tube TOP SCH ×3 (08:11→21:34)
[2021-08-04] MEDS ORDERED: Cefdinir 300 MG CAP PO SCH (09:00)
[2021-08-04 09:34] LABS: #Basophils 0.1 thou/uL (0.0-0.2); #Eosinphils 0.3 thou/uL (0.0-0.7); #Lymphocytes 2.4 thou/uL (1.20-3.40); #Monocytes 0.5 thou/uL (0.11-0.59); #Neutrophils 5.8 thou/uL (1.40-6.50); %Eosinophils 2.9 % (0.0-10.0); %Lymphocytes 26.6 % (21.0-51.0); %Monocytes 5.3 % (0.0-10.0); %Neutrophils 64.2 % (42.0-75.0); Hemoglobin 13.2 g/dL (12.0-16.0); Mean Corpuscular HGB CONC 32.3 g/dL (32.0-36.0); Mean Corpuscular Hemoglobin 24.4 pg (27.0-31.0); Mean Corpuscular Volume 75.7 fL (78.0-98.0); Mean Platelet Volume 8.1 fL (7.4-10.4); Platelet Count 333 thou/uL (130-400); RBC Distribution Width 13.1 % (11.5-14.5)
[2021-08-04 10:39] LABS: MDiff Complete? YES; Microcytosis SLIGHT = 6-15 cells (100X) (0-5/hpf); Platelet Morphology Comment Appears Adequate; Polychromasia SLIGHT = 2-3 cells (100X) (0-2/hpf)
[2021-08-04 10:41] LABS: Anion Gap 15 mmol/L (10-20); BUN (Urea Nitrogen) 6 mg/dL (7.0-18.7); Calc. Creatinine Clearance 122 mL/min (70-130); Carbon Dioxide 16 mmol/L (22-29); Chloride 106 mmol/L (98-107); Glucose 116 mg/dL (70-105); Potassium 4.1 mmol/L (3.5-5.1); Sodium 133 mmol/L (136-145)
[2021-08-04] MEDS: Cephalexin 250 MG CAP PO SCH ×3 (12:10→21:36)
[2021-08-04] MEDS: Prochlorperazine Maleate 5 MG TAB PO PRN (17:02)
[2021-08-04] MEDS: Alogliptin 25 MG TAB PO SCH (21:36)
[2021-08-04] MEDS: ALPRAZolam 1 MG TAB PO SCH (21:36)
[2021-08-04] MEDS: Empagliflozin 25 MG TAB PO SCH (21:36)
[2021-08-05] MEDS: Sodium Chloride 0.9% 1,000 ML IV SCH (03:50)
[2021-08-05 06:40] LABS: ALT (SGPT) 7 U/L (8-55); AST (SGOT) 16 U/L (5-34); Albumin 3.4 g/dL (3.5-5.0); Alkaline Phosphatase 77 U/L (40-110); Anion Gap 15 mmol/L (10-20); BUN (Urea Nitrogen) 5 mg/dL (7.0-18.7); Bilirubin, Total 0.2 mg/dL (0.2-1.2); Calc. Creatinine Clearance 119 mL/min (70-130); Calcium 8.9 mg/dL (7.8-10.44); Carbon Dioxide 19 mmol/L (22-29); Chloride 107 mmol/L (98-107); Globulin 3.4 g/dL (2.4-3.5); Glucose 86 mg/dL (70-105); Potassium 4.6 mmol/L (3.5-5.1); Protein, Total 6.8 g/dL (6.0-8.3); Sodium 136 mmol/L (136-145)
[2021-08-05] MEDS: Cephalexin 250 MG CAP PO SCH ×2 (08:10→13:39)
[2021-08-05] MEDS: metFORMIN 500 MG TAB PO SCH (08:10)
[2021-08-05] MEDS: HYDROcodone/Acetaminophen 5/325 mg Tablet PO PRN ×2 (08:11→13:39)
[2021-08-05] MEDS: Ondansetron PF 4 MG/2 ML Vial IVP PRN ×2 (08:11→13:40)
[2021-08-05] MEDS: Mupirocin 2% Ointment 22 GM Tube TOP SCH (08:12)
[2021-08-05 08:32] LABS: #Basophils 0.1 thou/uL (0.0-0.2); #Eosinphils 0.3 thou/uL (0.0-0.7); #Monocytes 0.5 thou/uL (0.11-0.59); #Neutrophils 5.5 thou/uL (1.40-6.50); %Basophils 1.5 % (0.0-1.0); %Eosinophils 3.2 % (0.0-10.0); %Lymphocytes 24.3 % (21.0-51.0); %Monocytes 5.5 % (0.0-10.0); %Neutrophils 65.6 % (42.0-75.0); Hemoglobin 11.6 g/dL (12.0-16.0); Mean Corpuscular Hemoglobin 24.6 pg (27.0-31.0); Mean Corpuscular Volume 79.3 fL (78.0-98.0); Mean Platelet Volume 7.1 fL (7.4-10.4); Platelet Count 327 thou/uL (130-400); Red Blood Cell (RBC) Count 4.73 mill/uL (4.20-5.40); White Blood Cell (WBC) Count 8.3 thou/uL (4.8-10.8)
[2021-08-05 09:00] LABS: MDiff Complete? YES; Microcytosis SLIGHT = 6-15 cells (100X) (0-5/hpf); Platelet Morphology Comment Appears Adequate; Polychromasia SLIGHT = 2-3 cells (100X) (0-2/hpf)
[2021-08-05 09:33] VITALS: BP 123/86; TEMP 98.3
== END 2021-08-05 15:14 | disposition home or self-care (01) | DRG 872 ==
LOC: ERS 16:12 → ERHOLD 23:36 → T4-B 08-02 04:17 → OBSVTOIN 08-04 08:11
PROVIDERS: ADMIT Specialist; ATTEND Specialist
DX: A41.9 Sepsis, unspecified organism (principal); E87.1 Hypo-osmolality and hyponatremia; Z68.41 Body mass index [BMI] 40.0-44.9, adult; E86.0 Dehydration; E11.9 Type 2 diabetes mellitus without complications; G47.419 Narcolepsy without cataplexy; Z20.822 Contact with and (suspected) exposure to COVID-19; E66.01 Morbid (severe) obesity due to excess calories; J45.909 Unspecified asthma, uncomplicated; K21.9 Gastro-esophageal reflux disease without esophagitis; G43.909 Migraine, unspecified, not intractable, without status migrainosus; F41.9 Anxiety disorder, unspecified; Z98.51 Tubal ligation status; Z90.49 Acquired absence of other specified parts of digestive tract; Z90.710 Acquired absence of both cervix and uterus; Z88.8 Allergy status to other drugs, medicaments and biological substances; Z88.2 Allergy status to sulfonamides
CPT/HCPCS: 0240U; 36415; 36416; 71045; 71046; 71275; 74177; 80048; 80053; 81003; 81015; 82550; 83036; 83605; 83690; 84443; 84484; 85025; 85379; 85652; 86140; 87040; 87086; 93005; 93306; 96365; 96366; 96375; 96376; G0378; J0696; J2405; J3490; J7050; Q0164

== ENCOUNTER 2021-08-25 16:16 | Emergency (ER) | payer BC | END 2021-08-25 18:20 | disposition home or self-care (01) | LOC: ERS 16:16 | DX: Z00.00 Encounter for general adult medical examination without abnormal findings (principal); E11.9 Type 2 diabetes mellitus without complications; I10 Essential (primary) hypertension | CPT/HCPCS: 36416; 99281 ==

== ENCOUNTER → 2022-02-02 | Emergency (ER) | payer BC ==
[~2022-02-02] MED LIST: Ketorolac Tromethamine 30 MG/ML VIAL ONE
[2022-02-02 13:48] LABS: #Basophils 0.1 thou/uL (0.0-0.2); #Eosinphils 0.1 thou/uL (0.0-0.7); #Lymphocytes 2.5 thou/uL (1.20-3.40); #Monocytes 0.5 thou/uL (0.11-0.59); #Neutrophils 6.6 thou/uL (1.40-6.50); %Basophils 0.9 % (0.0-1.0); %Eosinophils 1.5 % (0.0-10.0); %Lymphocytes 25.4 % (21.0-51.0); %Monocytes 5.5 % (0.0-10.0); %Neutrophils 66.7 % (42.0-75.0); Hemoglobin 14.4 g/dL (12.0-16.0); Mean Corpuscular HGB CONC 33.7 g/dL (32.0-36.0); Mean Corpuscular Hemoglobin 26.3 pg (27.0-31.0); Mean Platelet Volume 7.9 fL (7.4-10.4); Platelet Count 391 thou/uL (130-400); RBC Distribution Width 15.4 % (11.5-14.5); Red Blood Cell (RBC) Count 5.49 mill/uL (4.20-5.40); White Blood Cell (WBC) Count 9.9 thou/uL (4.8-10.8)
[2022-02-02 14:07] LABS: ALT (SGPT) 11 U/L (8-55); AST (SGOT) 13 U/L (5-34); Albumin 4.5 g/dL (3.5-5.0); Alkaline Phosphatase 96 U/L (40-110); Anion Gap 16 mmol/L (10-20); BUN (Urea Nitrogen) 18 mg/dL (7.0-18.7); Bilirubin, Total 0.3 mg/dL (0.2-1.2); Calc. Creatinine Clearance 0 mL/min (70-130); Carbon Dioxide 23 mmol/L (22-29); Chloride 102 mmol/L (98-107); Estimated GFR 41; Globulin 4.1 g/dL (2.4-3.5); Glucose 190 mg/dL (70-105); Potassium 3.9 mmol/L (3.5-5.1); Protein, Total 8.6 g/dL (6.0-8.3); Sodium 137 mmol/L (136-145)
== END ==
LOC: ERS 13:18
DX: R07.9 Chest pain, unspecified (principal); G43.909 Migraine, unspecified, not intractable, without status migrainosus; E11.9 Type 2 diabetes mellitus without complications; I10 Essential (primary) hypertension; Z79.899 Other long term (current) drug therapy
CPT/HCPCS: 71045; 80053; 84484; 85025; 93005; 94760; 96374; J1885

== ENCOUNTER 2022-04-06 15:03 | Outpatient (CLI) | payer BC | END 2022-04-06 15:04 | disposition home or self-care (01) | LOC: BICMAMMO 15:03 | PROVIDERS: ATTEND Specialist | DX: N64.4 Mastodynia (principal) | CPT/HCPCS: 77066; G0279 ==

== ENCOUNTER 2022-08-31 14:17 | Observation (INO) | payer BC ==
[2022-08-31 15:45] LABS: #Basophils 0.1 thou/uL (0.0-0.2); #Eosinphils 0.2 thou/uL (0.0-0.7); #Lymphocytes 2.7 thou/uL (1.20-3.40); #Monocytes 0.6 thou/uL (0.11-0.59); #Neutrophils 7.4 thou/uL (1.40-6.50); %Basophils 0.7 % (0.0-1.0); %Lymphocytes 24.5 % (21.0-51.0); %Monocytes 5.8 % (0.0-10.0); %Neutrophils 67.1 % (42.0-75.0); Hemoglobin 12.3 g/dL (12.0-16.0); Mean Corpuscular HGB CONC 32.9 g/dL (32.0-36.0); Mean Corpuscular Hemoglobin 25.3 pg (27.0-31.0); Mean Corpuscular Volume 76.8 fl (78.0-98.0); Mean Platelet Volume 8.1 fL (7.4-10.4); Platelet Count 300 10x3/uL (130-400); RBC Distribution Width 14.8 % (11.5-14.5); Red Blood Cell (RBC) Count 4.87 mill/uL (4.20-5.40); White Blood Cell (WBC) Count 11.1 10x3/uL (4.8-10.8)
[2022-08-31] MEDS ORDERED: Ketorolac Tromethamine 30 MG/ML VIAL ONE (16:01)
[2022-08-31 16:06] LABS: ALT (SGPT) 12 U/L (8-55); AST (SGOT) 13 U/L (5-34); Albumin 3.9 g/dL (3.5-5.0); Alkaline Phosphatase 118 U/L (40-110); Anion Gap 17 mmol/L (10-20); BUN (Urea Nitrogen) 15 mg/dL (7.0-18.7); Bilirubin, Total Less than 0.2 mg/dL (0.2-1.2); Calc. Creatinine Clearance 0 mL/min (70-130); Calcium 9.2 mg/dL (7.8-10.44); Carbon Dioxide 21 mmol/L (22-29); Chloride 98 mmol/L (98-107); Estimated GFR 37; Globulin 3.8 g/dL (2.4-3.5); Glucose 279 mg/dL (70-105); Potassium 4.6 mmol/L (3.5-5.1); Protein, Total 7.7 g/dL (6.0-8.3); Sodium 131 mmol/L (136-145)
[2022-08-31] MEDS ORDERED: diphenhydrAMINE 25 MG CAP ONE (17:24)
[2022-08-31 18:27] LABS: Bacteria/HPF 2+ HPF (None Seen); Bilirubin Negative (Negative); Blood, Urine Negative (Negative); Clarity Clear (Clear); Glucose, Urine (Dipstick) Greater than 1000 mg/dL (Negative); Ketone, Urine Trace mg/dL (Negative); Leukocyte Negative Leu/uL (Negative); Nitrite 1+ (Negative); Protein, Urine (Dipstick) Negative (Neg-Trace); RBC/HPF 0-3 HPF (0-3); Squamous Epithelial 0-3 HPF (0-3); Urobilinogen Normal mg/dL (Less than 2)
[2022-08-31] MEDS ORDERED: Morphine 4 MG/ML VIAL ONE (20:39)
[2022-08-31 22:02] LABS: Lactic Acid 2.6 mmol/L (0.5-2.2)
[2022-09-01] MEDS ORDERED: cloNIDine 0.1 MG TAB PO PRN (02:00)
[2022-09-01] MEDS ORDERED: ALPRAZolam 1 MG TAB PO PRN (02:00)
[2022-09-01] MEDS ORDERED: hydrOXYzine 25 MG TAB PO PRN (02:00)
[2022-09-01] MEDS: Acetaminophen 500 MG TAB PO PRN ×2 (02:14→10:19)
[2022-09-01 02:58] VITALS: BMI 49.0
[2022-09-01 06:31] LABS: #Basophils 0.1 thou/uL (0.0-0.2); #Eosinphils 0.2 thou/uL (0.0-0.7); #Lymphocytes 2.1 thou/uL (1.20-3.40); #Monocytes 0.7 thou/uL (0.11-0.59); #Neutrophils 6.9 thou/uL (1.40-6.50); %Basophils 0.6 % (0.0-1.0); %Eosinophils 2.1 % (0.0-10.0); %Lymphocytes 20.9 % (21.0-51.0); %Monocytes 7.4 % (0.0-10.0); Mean Corpuscular HGB CONC 33.3 g/dL (32.0-36.0); Mean Corpuscular Hemoglobin 25.5 pg (27.0-31.0); Mean Corpuscular Volume 76.4 fl (78.0-98.0); Mean Platelet Volume 7.7 fL (7.4-10.4); Platelet Count 262 10x3/uL (130-400); RBC Distribution Width 14.6 % (11.5-14.5); Red Blood Cell (RBC) Count 4.33 mill/uL (4.20-5.40)
[2022-09-01 06:46] LABS: Lactic Acid 1.2 mmol/L (0.5-2.2)
[2022-09-01 06:56] LABS: ALT (SGPT) 10 U/L (8-55); AST (SGOT) 12 U/L (5-34); Alkaline Phosphatase 97 U/L (40-110); Anion Gap 13 mmol/L (10-20); BUN (Urea Nitrogen) 16 mg/dL (7.0-18.7); Bilirubin, Total 0.2 mg/dL (0.2-1.2); Calc. Creatinine Clearance 98 mL/min (70-130); Calcium 8.5 mg/dL (7.8-10.44); Carbon Dioxide 22 mmol/L (22-29); Chloride 103 mmol/L (98-107); Estimated GFR 47; Globulin 3.1 g/dL (2.4-3.5); Glucose 185 mg/dL (70-105); Potassium 4.5 mmol/L (3.5-5.1); Protein, Total 6.1 g/dL (6.0-8.3); Sodium 133 mmol/L (136-145)
[2022-09-01 07:35] VITALS: BP 148/74; TEMP 98.6
== END 2022-09-01 10:32 | disposition home or self-care (01) ==
LOC: ERS 14:17 → T4-B 23:08
PROVIDERS: ADMIT Specialist; ATTEND Specialist
DX: E87.20 Acidosis, unspecified (principal); N17.9 Acute kidney failure, unspecified; E86.0 Dehydration; I10 Essential (primary) hypertension; Z20.822 Contact with and (suspected) exposure to COVID-19; R07.89 Other chest pain; I48.91 Unspecified atrial fibrillation; E11.9 Type 2 diabetes mellitus without complications; M32.9 Systemic lupus erythematosus, unspecified; Z88.1 Allergy status to other antibiotic agents; Z88.2 Allergy status to sulfonamides; Z88.8 Allergy status to other drugs, medicaments and biological substances; Z91.013 Allergy to seafood; Z91.048 Other nonmedicinal substance allergy status; Z79.84 Long term (current) use of oral hypoglycemic drugs; Z79.890 Hormone replacement therapy; Z79.899 Other long term (current) drug therapy
CPT/HCPCS: 36415; 36416; 71045; 80053; 81003; 81015; 83605; 83690; 84484; 85025; 85379; 87040; 87077; 87086; 87186; 93005; 96361; 96374; 96375; G0378; J1885; J2270; U0003; U0005

== ENCOUNTER 2022-10-26 20:54 | Emergency (ER) | payer BC ==
[~2022-10-26 20:54] MED LIST changes: +Iopamidol-370 76% 500 ML MDV (1 ML CHARGE) ONE; -Ketorolac Tromethamine 30 MG/ML VIAL ONE
[2022-10-26 21:37] LABS: Bilirubin Negative (Negative); Blood, Urine Negative (Negative); Clarity Clear (Clear); Glucose, Urine (Dipstick) Greater than 1000 mg/dL (Negative); Ketone, Urine Negative (Negative); Leukocyte Negative Leu/uL (Negative); Nitrite Negative (Negative); Protein, Urine (Dipstick) Negative (Neg-Trace); Specific Gravity, Urine 1.029 (1.002-1.036); Urobilinogen Normal mg/dL (Less than 2); pH, Urine 5.5 (5.0-9.0)
[2022-10-26] MEDS ORDERED: Lidocaine Viscous Sol 2% 15 ml UD Cup ONE (21:47)
[2022-10-26] MEDS ORDERED: Mag-Al 1200 mg/1200 mg/30 ML UDCUP ONE (21:47)
[2022-10-26 22:15] LABS: #Basophils 0.1 thou/uL (0.0-0.2); #Eosinphils 0.2 thou/uL (0.0-0.7); #Lymphocytes 3.4 thou/uL (1.20-3.40); #Monocytes 0.7 thou/uL (0.11-0.59); %Basophils 0.6 % (0.0-1.0); %Eosinophils 1.5 % (0.0-10.0); %Lymphocytes 23.4 % (21.0-51.0); %Monocytes 4.8 % (0.0-10.0); %Neutrophils 69.7 % (42.0-75.0); Hemoglobin 13.2 g/dL (12.0-16.0); Mean Corpuscular HGB CONC 30.9 g/dL (32.0-36.0); Mean Corpuscular Hemoglobin 23.8 pg (27.0-31.0); Mean Corpuscular Volume 76.9 fl (78.0-98.0); Mean Platelet Volume 8.3 fL (7.4-10.4); Platelet Count 381 10x3/uL (130-400); RBC Distribution Width 15.2 % (11.5-14.5); Red Blood Cell (RBC) Count 5.54 mill/uL (4.20-5.40); White Blood Cell (WBC) Count 14.3 10x3/uL (4.8-10.8)
[2022-10-26 22:28] LABS: ALT (SGPT) 10 U/L (8-55); AST (SGOT) 13 U/L (5-34); Albumin 4.1 g/dL (3.5-5.0); Alkaline Phosphatase 103 U/L (40-110); Anion Gap 19 mmol/L (10-20); BUN (Urea Nitrogen) 17 mg/dL (7.0-18.7); Bilirubin, Total 0.3 mg/dL (0.2-1.2); Calc. Creatinine Clearance 0 mL/min (70-130); Calcium 9.7 mg/dL (7.8-10.44); Carbon Dioxide 21 mmol/L (22-29); Chloride 100 mmol/L (98-107); Estimated GFR 39; Globulin 3.9 g/dL (2.4-3.5); Glucose 181 mg/dL (70-105); Lipase 47 U/L (8-78); Potassium 3.7 mmol/L (3.5-5.1); Sodium 136 mmol/L (136-145)
[2022-10-26] MEDS ORDERED: Ondansetron PF 4 MG/2 ML Vial ONE (22:46)
[2022-10-26] MEDS ORDERED: Dicyclomine 20 MG/2 ML VIAL ONE (22:46)
[2022-10-26] MEDS ORDERED: Ketorolac Tromethamine 30 MG/ML VIAL ONE (22:46)
[2022-10-26 23:41] LABS: SARS-CoV-2 NAA Rapid Test Not Detected (NotDetected)
== END 2022-10-27 01:00 | disposition home or self-care (01) ==
LOC: ERS 20:54
DX: R10.9 Unspecified abdominal pain (principal); D72.829 Elevated white blood cell count, unspecified; E11.9 Type 2 diabetes mellitus without complications; I10 Essential (primary) hypertension; Z20.822 Contact with and (suspected) exposure to COVID-19
CPT/HCPCS: 74177; 80053; 81003; 83690; 84443; 85025; 96372; 96374; 96375; J1885; J2405; Q9967

== ENCOUNTER 2023-02-11 14:37 | Emergency (ER) | payer BC ==
[2023-02-11] MEDS ORDERED: methylPREDNISolone Sod Succ/PF 125 MG/2 ML VIAL ONE (15:09)
[2023-02-11] MEDS ORDERED: Famotidine 20 MG TAB ONE (15:09)
[2023-02-11] MEDS ORDERED: diphenhydrAMINE 25 MG CAP ONE (16:00)
[2023-02-11] MEDS ORDERED: Loratadine 10 MG TAB PO SCH (16:00)
[2023-02-11] MEDS ORDERED: Ondansetron ODT 4 MG TAB ONE (16:10)
[2023-02-11] MEDS ORDERED: diphenhydrAMINE 50 MG/ML VIAL ONE (16:17)
== END 2023-02-11 16:57 | disposition home or self-care (01) ==
LOC: ERS 14:37
DX: T78.40XA Allergy, unspecified, initial encounter (principal); I48.91 Unspecified atrial fibrillation; E11.9 Type 2 diabetes mellitus without complications; I10 Essential (primary) hypertension
CPT/HCPCS: J1200; J2930; Q0162

== ENCOUNTER 2023-02-12 13:08 | Emergency (ER) | payer BC ==
[2023-02-12] MEDS ORDERED: Metoclopramide HCl 10 MG/2 ML VIAL ONE (13:55)
[2023-02-12] MEDS ORDERED: Ketorolac Tromethamine 30 MG/ML VIAL ONE (13:55)
[2023-02-12] MEDS ORDERED: diphenhydrAMINE 50 MG/ML VIAL ONE (13:55)
[2023-02-12 14:32] LABS: #Monocytes 1.1 thou/uL (0.11-0.59); #Neutrophils 14.1 thou/uL (1.40-6.50); %Basophils 0.2 % (0.0-1.0); %Eosinophils 0.1 % (0.0-10.0); %Lymphocytes 10.7 % (21.0-51.0); %Monocytes 6.3 % (0.0-10.0); Hematocrit 40.8 % (36.0-47.0); Hemoglobin 13.7 g/dL (12.0-16.0); Mean Corpuscular HGB CONC 33.6 g/dL (32.0-36.0); Mean Corpuscular Hemoglobin 25.8 pg (27.0-31.0); Mean Platelet Volume 10.4 fL (7.4-10.4); Platelet Count 359 10x3/uL (130-400); RBC Distribution Width 15.1 % (11.5-14.5); White Blood Cell (WBC) Count 17.2 10x3/uL (4.8-10.8)
[2023-02-12] MEDS ORDERED: hydrOXYzine 25 MG TAB ONE (15:21)
[2023-02-12 17:31] LABS: Chloride 100 mmol/L (98-107); Potassium 3.3 mmol/L (3.5-5.1); Sodium 133 mmol/L (136-145)
[2023-02-12 17:33] LABS: Globulin 3.5 g/dL (2.4-3.5); Glucose 348 mg/dL (70-105); Protein, Total 7.5 g/dL (6.0-8.3)
[2023-02-12 17:34] LABS: Anion Gap 14 mmol/L (10-20); Bilirubin, Total 0.4 mg/dL (0.2-1.2); Carbon Dioxide 22 mmol/L (22-29)
[2023-02-12 17:35] LABS: Alkaline Phosphatase 87 U/L (40-110)
[2023-02-12 17:36] LABS: Calc. Creatinine Clearance 0 mL/min (70-130); Estimated GFR 43
[2023-02-12 17:37] LABS: BUN (Urea Nitrogen) 17 mg/dL (7.0-18.7)
[2023-02-12 17:38] LABS: ALT (SGPT) 12 U/L (8-55); AST (SGOT) 12 U/L (5-34)
== END 2023-02-12 17:53 | disposition home or self-care (01) ==
LOC: ERS 13:08
DX: L29.9 Pruritus, unspecified (principal); T78.40XA Allergy, unspecified, initial encounter; I48.91 Unspecified atrial fibrillation; E11.9 Type 2 diabetes mellitus without complications; I10 Essential (primary) hypertension; Z79.899 Other long term (current) drug therapy
CPT/HCPCS: 36415; 80053; 85025; 96365; 96374; 96375; J1200; J1885; J2765; J2930; Q0162

== ENCOUNTER 2023-04-04 15:44 | Inpatient (IN) | payer BC ==
[2023-04-04 16:26] LABS: Bilirubin Negative (Negative); Blood, Urine Negative (Negative); CAUTI Indications for Culture Alt mental st,lethar; Clarity Clear (Clear); Glucose, Urine (Dipstick) Greater than 1000 mg/dL (Negative); Ketone, Urine Trace mg/dL (Negative); Leukocyte 75 Leu/uL (Negative); Nitrite 1+ (Negative); Protein, Urine (Dipstick) 10 mg/dL (Neg-Trace); RBC/HPF 0-3 HPF (0-3); Specific Gravity, Urine 1.035 (1.002-1.036); Squamous Epithelial 0-3 HPF (0-3); Urobilinogen Normal mg/dL (Less than 2); WBC/HPF 21-50 HPF (0-3); pH, Urine 5.5 (5.0-9.0)
[2023-04-04] MEDS ORDERED: Ondansetron PF 4 MG/2 ML Vial ONE (16:34)
[2023-04-04] MEDS ORDERED: Acetaminophen 500 MG TAB ONE ×2 (16:34→22:09)
[2023-04-04] MEDS ORDERED: Aspirin Chewable 81 MG TAB ONE (16:45)
[2023-04-04 17:08] LABS: Bacteria/HPF 1+ HPF (None Seen)
[2023-04-04 17:10] LABS: Urine Culture Reflex Yes Yes
[2023-04-04 17:24] LABS: #Eosinphils 0.2 thou/uL (0.0-0.7); #Monocytes 0.5 thou/uL (0.11-0.59); #Neutrophils 5.6 thou/uL (1.40-6.50); %Basophils 0.4 % (0.0-1.0); %Eosinophils 2.4 % (0.0-10.0); %Lymphocytes 24.9 % (21.0-51.0); %Monocytes 5.7 % (0.0-10.0); %Neutrophils 66.4 % (42.0-75.0); Hematocrit 40.2 % (36.0-47.0); Hemoglobin 13.2 g/dL (12.0-16.0); Mean Corpuscular HGB CONC 32.8 g/dL (32.0-36.0); Mean Corpuscular Hemoglobin 25.5 pg (27.0-31.0); Mean Corpuscular Volume 77.8 fl (78.0-98.0); Mean Platelet Volume 9.6 fL (7.4-10.4); Platelet Count 324 10x3/uL (130-400); RBC Distribution Width 14.6 % (11.5-14.5); Red Blood Cell (RBC) Count 5.17 mill/uL (4.20-5.40); White Blood Cell (WBC) Count 8.5 10x3/uL (4.8-10.8)
[2023-04-04 17:52] LABS: Troponin I Less than 0.010 ng/mL (< 0.028)
[2023-04-04 18:00] LABS: ALT (SGPT) 10 U/L (8-55); AST (SGOT) 9 U/L (5-34); Albumin 4.3 g/dL (3.5-5.0); Alkaline Phosphatase 72 U/L (40-110); Anion Gap 14 mmol/L (10-20); BUN (Urea Nitrogen) 12 mg/dL (7.0-18.7); Bilirubin, Total Less than 1.0 mg/dL (0.2-1.2); Calc. Creatinine Clearance 0 mL/min (70-130); Calcium 9.8 mg/dL (7.8-10.44); Carbon Dioxide 26 mmol/L (22-29); Chloride 104 mmol/L (98-107); Estimated GFR 49; Globulin 2.9 g/dL (2.4-3.5); Glucose 295 mg/dL (70-105); Magnesium 1.3 mg/dL (1.6-2.6); Potassium 3.5 mmol/L (3.5-5.1); Protein, Total 7.2 g/dL (6.0-8.3); Sodium 140 mmol/L (136-145)
[2023-04-04] MEDS ORDERED: cefTRIAXone (ROCEPHIN) 2 GM VIAL ONE (18:38)
[2023-04-04] MEDS ORDERED: Magnesium 2 GM/50 ML BAG (IN WATER) ONE (18:38)
[2023-04-04 19:23] LABS: SARS-CoV-2 NAA Rapid Test Not Detected (NotDetected)
[2023-04-04] MEDS ORDERED: HumaLOG 300 UNITS/3 ML VIAL SC PRN ×2 (21:41)
[2023-04-04] MEDS ORDERED: Dextrose 50% Abboject 50 ML SYRINGE SLOW IVP PRN (21:41)
[2023-04-04] MEDS ORDERED: Acetaminophen 325 MG TAB PO PRN ×2 (21:41→21:45)
[2023-04-04] MEDS ORDERED: Glucagon 1 MG/ML KIT IM PRN (21:41)
[2023-04-04] MEDS ORDERED: Ondansetron ODT 4 MG TAB PO PRN (21:41)
[2023-04-04] MEDS ORDERED: Dextrose 5% in Water 1,000 ML IV PRN (21:41)
[2023-04-04] MEDS ORDERED: Ondansetron PF 4 MG/2 ML Vial IVP PRN (21:45)
[2023-04-04] MEDS ORDERED: Ondansetron ODT 4 MG TAB SL PRN (21:45)
[2023-04-04 22:15] LABS: Phosphorus 3.3 mg/dL (2.3-4.7)
[2023-04-05] MEDS: Fioricet 325/50/40 mg Tablet PO PRN ×4 (02:41→23:23)
[2023-04-05 03:25] VITALS: BMI 39.1
[2023-04-05 05:41] LABS: #Basophils 0.1 thou/uL (0.0-0.2); #Eosinphils 0.2 thou/uL (0.0-0.7); #Monocytes 0.5 thou/uL (0.11-0.59); %Basophils 0.8 % (0.0-1.0); %Eosinophils 2.9 % (0.0-10.0); %Lymphocytes 32.1 % (21.0-51.0); %Monocytes 7.5 % (0.0-10.0); %Neutrophils 56.4 % (42.0-75.0); Hematocrit 38.5 % (36.0-47.0); Hemoglobin 12.8 g/dL (12.0-16.0); Mean Corpuscular HGB CONC 33.2 g/dL (32.0-36.0); Mean Corpuscular Volume 78.1 fl (78.0-98.0); Mean Platelet Volume 9.6 fL (7.4-10.4); Platelet Count 296 10x3/uL (130-400); RBC Distribution Width 14.7 % (11.5-14.5); Red Blood Cell (RBC) Count 4.93 mill/uL (4.20-5.40); White Blood Cell (WBC) Count 7.2 10x3/uL (4.8-10.8)
[2023-04-05 06:10] LABS: Anion Gap 14 mmol/L (10-20); BUN (Urea Nitrogen) 11 mg/dL (7.0-18.7); Calc. Creatinine Clearance 108 mL/min (70-130); Carbon Dioxide 24 mmol/L (22-29); Chloride 107 mmol/L (98-107); Estimated GFR 69; Glucose 152 mg/dL (70-105); Magnesium 1.7 mg/dL (1.6-2.6); Potassium 3.6 mmol/L (3.5-5.1); Sodium 141 mmol/L (136-145)
[2023-04-05] MEDS: Digoxin 0.125 MG TAB PO SCH (10:28)
[2023-04-05] MEDS: Gabapentin 300 MG CAP PO SCH ×3 (10:29→22:20)
[2023-04-05] MEDS: Furosemide 20 MG TAB PO SCH (10:29)
[2023-04-05] MEDS: Estradiol 1 MG TAB PO SCH (10:30)
[2023-04-05] MEDS: metFORMIN 500 MG TAB PO SCH ×2 (12:10→17:33)
[2023-04-05] MEDS ORDERED: cefTRIAXone\\ROCEPHIN 1 GM in Sodium Chloride 0.9% 100 ML IVPB SCH ×2 (20:00→23:00)
[2023-04-05] MEDS: ALPRAZolam 1 MG TAB PO SCH (22:20)
[2023-04-05] MEDS: Ondansetron PF 4 MG/2 ML Vial IVP PRN (23:23)
[2023-04-06 04:36] LABS: #Basophils 0.1 thou/uL (0.0-0.2); #Eosinphils 0.2 thou/uL (0.0-0.7); #Monocytes 0.6 thou/uL (0.11-0.59); #Neutrophils 6.2 thou/uL (1.40-6.50); %Basophils 0.5 % (0.0-1.0); %Eosinophils 2.1 % (0.0-10.0); %Lymphocytes 28.3 % (21.0-51.0); %Neutrophils 62.9 % (42.0-75.0); Hematocrit 37.2 % (36.0-47.0); Hemoglobin 12.2 g/dL (12.0-16.0); Mean Corpuscular HGB CONC 32.8 g/dL (32.0-36.0); Mean Corpuscular Hemoglobin 26.2 pg (27.0-31.0); Mean Platelet Volume 9.7 fL (7.4-10.4); Platelet Count 306 10x3/uL (130-400); RBC Distribution Width 14.8 % (11.5-14.5); Red Blood Cell (RBC) Count 4.65 mill/uL (4.20-5.40); White Blood Cell (WBC) Count 9.8 10x3/uL (4.8-10.8)
[2023-04-06 04:46] LABS: Hemoglobin A1c 8.7 % (4.0-6.0)
[2023-04-06 05:03] LABS: Anion Gap 14 mmol/L (10-20); BUN (Urea Nitrogen) 16 mg/dL (7.0-18.7); Calc. Creatinine Clearance 90 mL/min (70-130); Calcium 9.1 mg/dL (7.8-10.44); Carbon Dioxide 26 mmol/L (22-29); Cardiac Risk 5.1 (Less than 4.5); Chloride 103 mmol/L (98-107); Cholesterol 192 mg/dl (< 200 Desired); Estimated GFR 56; Glucose 170 mg/dL (70-105); HDL Cholesterol 38 mg/dL (>60 Neg Risk); LDL Cholesterol, Calculated 80 mg/dL; Potassium 3.2 mmol/L (3.5-5.1); Sodium 140 mmol/L (136-145); Triglycerides 370 mg/dL (Less than 150)
[2023-04-06] MEDS: Fioricet 325/50/40 mg Tablet PO PRN ×3 (06:33→22:06)
[2023-04-06] MEDS ORDERED: LevoFLOXacin 500 MG TAB PO SCH ×2 (08:00→09:00)
[2023-04-06] MEDS: Digoxin 0.125 MG TAB PO SCH (08:57)
[2023-04-06] MEDS: Ondansetron PF 4 MG/2 ML Vial IVP PRN (08:57)
[2023-04-06] MEDS: Estradiol 1 MG TAB PO SCH (08:58)
[2023-04-06] MEDS: Gabapentin 300 MG CAP PO SCH ×3 (09:00→22:06)
[2023-04-06] MEDS: Furosemide 20 MG TAB PO SCH (09:00)
[2023-04-06] MEDS: Potassium Chloride 20 MEQ TAB PO SCH ×2 (09:00→17:27)
[2023-04-06] MEDS: metFORMIN 500 MG TAB PO SCH ×3 (09:01→17:27)
[2023-04-06] MEDS: ALPRAZolam 1 MG TAB PO SCH (22:07)
[2023-04-07 04:52] LABS: #Eosinphils 0.2 thou/uL (0.0-0.7); #Monocytes 0.6 thou/uL (0.11-0.59); %Basophils 0.5 % (0.0-1.0); %Eosinophils 2.3 % (0.0-10.0); %Lymphocytes 34.9 % (21.0-51.0); %Monocytes 6.2 % (0.0-10.0); %Neutrophils 55.6 % (42.0-75.0); Hematocrit 36.4 % (36.0-47.0); Mean Corpuscular Hemoglobin 26.4 pg (27.0-31.0); Mean Platelet Volume 9.7 fL (7.4-10.4); Platelet Count 299 10x3/uL (130-400); RBC Distribution Width 14.6 % (11.5-14.5); Red Blood Cell (RBC) Count 4.55 mill/uL (4.20-5.40); White Blood Cell (WBC) Count 8.9 10x3/uL (4.8-10.8)
[2023-04-07 05:18] LABS: Anion Gap 15 mmol/L (10-20); BUN (Urea Nitrogen) 15 mg/dL (7.0-18.7); Calc. Creatinine Clearance 103 mL/min (70-130); Carbon Dioxide 25 mmol/L (22-29); Chloride 103 mmol/L (98-107); Estimated GFR 66; Glucose 185 mg/dL (70-105); Potassium 3.6 mmol/L (3.5-5.1); Sodium 139 mmol/L (136-145)
[2023-04-07] MEDS: Fioricet 325/50/40 mg Tablet PO PRN (05:49)
[2023-04-07] MEDS ORDERED: LevoFLOXacin 500 MG TAB PO SCH (06:00)
[2023-04-07] MEDS ORDERED: Promethazine HCl 25 MG/ML VIAL IM PRN (08:22)
[2023-04-07] MEDS ORDERED: SUMAtriptan Succinate 6 MG/0.5 ML VIAL SC PRN (08:24)
[2023-04-07] MEDS ORDERED: fentaNYL 50 mcg/mL 1 mL Vial SLOW IVP PRN (08:25)
[2023-04-07 08:28] VITALS: BP 109/67; TEMP 98.1
[2023-04-07] MEDS: Gabapentin 300 MG CAP PO SCH (08:51)
[2023-04-07] MEDS: metFORMIN 500 MG TAB PO SCH ×2 (08:52→12:26)
[2023-04-07] MEDS: Potassium Chloride 20 MEQ TAB PO SCH (08:52)
[2023-04-07] MEDS: Furosemide 20 MG TAB PO SCH (08:52)
[2023-04-07] MEDS: Digoxin 0.125 MG TAB PO SCH (08:53)
[2023-04-07] MEDS: Estradiol 1 MG TAB PO SCH (08:53)
== END 2023-04-07 14:45 | disposition home or self-care (01) | DRG 690 ==
LOC: ERS 15:44 → 2SW 21:37 → OBSVTOIN 04-05 15:51
PROVIDERS: ADMIT Specialist; ATTEND Specialist
DX: N12 Tubulo-interstitial nephritis, not specified as acute or chronic (principal); E83.42 Hypomagnesemia; E11.65 Type 2 diabetes mellitus with hyperglycemia; I48.0 Paroxysmal atrial fibrillation; I10 Essential (primary) hypertension; G43.909 Migraine, unspecified, not intractable, without status migrainosus; Z91.048 Other nonmedicinal substance allergy status; Z88.1 Allergy status to other antibiotic agents; Z91.013 Allergy to seafood; Z88.2 Allergy status to sulfonamides; Z79.84 Long term (current) use of oral hypoglycemic drugs; Z79.899 Other long term (current) drug therapy; Z90.49 Acquired absence of other specified parts of digestive tract; Z90.710 Acquired absence of both cervix and uterus; Z98.51 Tubal ligation status; Z98.890 Other specified postprocedural states; Z11.52 Encounter for screening for COVID-19
CPT/HCPCS: 36415; 36416; 70450; 71045; 80048; 80053; 80061; 80162; 81001; 83036; 83735; 84100; 84443; 84484; 85025; 87040; 87077; 87086; 87186; 93005; 96361; 96365; 96366; 96368; 96375; 96376; G0378; J0696; J2405; J3475; J3490; Q0162

== ENCOUNTER 2023-04-11 18:04 | Emergency (ER) | payer BC ==
[2023-04-11] MEDS ORDERED: Metoclopramide HCl 10 MG/2 ML VIAL ONE (19:07)
[2023-04-11] MEDS ORDERED: diphenhydrAMINE 50 MG/ML VIAL ONE (19:07)
[2023-04-11] MEDS ORDERED: Ketorolac Tromethamine 30 MG/ML VIAL ONE (19:07)
[2023-04-11 19:29] LABS: #Basophils 0.1 thou/uL (0.0-0.2); #Eosinphils 0.2 thou/uL (0.0-0.7); #Monocytes 0.6 thou/uL (0.11-0.59); #Neutrophils 6.2 thou/uL (1.40-6.50); %Basophils 0.5 % (0.0-1.0); %Lymphocytes 26.9 % (21.0-51.0); %Monocytes 5.8 % (0.0-10.0); %Neutrophils 64.6 % (42.0-75.0); Hematocrit 38.6 % (36.0-47.0); Hemoglobin 12.7 g/dL (12.0-16.0); Mean Corpuscular HGB CONC 32.9 g/dL (32.0-36.0); Mean Corpuscular Hemoglobin 26.1 pg (27.0-31.0); Mean Corpuscular Volume 79.3 fl (78.0-98.0); Mean Platelet Volume 10.5 fL (7.4-10.4); Platelet Count 309 10x3/uL (130-400); RBC Distribution Width 14.8 % (11.5-14.5); Red Blood Cell (RBC) Count 4.87 mill/uL (4.20-5.40); White Blood Cell (WBC) Count 9.6 10x3/uL (4.8-10.8)
[2023-04-11 19:57] LABS: ALT (SGPT) 14 U/L (8-55); AST (SGOT) 18 U/L (5-34); Albumin 4.3 g/dL (3.5-5.0); Alkaline Phosphatase 73 U/L (40-110); Anion Gap 19 mmol/L (10-20); BUN (Urea Nitrogen) 16 mg/dL (7.0-18.7); Bilirubin, Total 0.2 mg/dL (0.2-1.2); Calc. Creatinine Clearance 0 mL/min (70-130); Carbon Dioxide 24 mmol/L (22-29); Chloride 99 mmol/L (98-107); Estimated GFR 52; Globulin 3.3 g/dL (2.4-3.5); Glucose 131 mg/dL (70-105); Magnesium 1.4 mg/dL (1.6-2.6); Potassium 4.1 mmol/L (3.5-5.1); Protein, Total 7.6 g/dL (6.0-8.3); Sodium 138 mmol/L (136-145)
[2023-04-11 20:00] LABS: Troponin I Less than 0.010 ng/mL (< 0.028)
[2023-04-11 21:56] LABS: Bacteria/HPF None Seen HPF (None Seen); Bilirubin Negative (Negative); Blood, Urine Negative (Negative); CAUTI Indications for Culture Pelvic or flank pain; Clarity Clear (Clear); Glucose, Urine (Dipstick) Greater than 1000 mg/dL (Negative); Ketone, Urine Negative (Negative); Leukocyte Negative Leu/uL (Negative); Nitrite Negative (Negative); Protein, Urine (Dipstick) Negative (Neg-Trace); RBC/HPF 0-3 HPF (0-3); Specific Gravity, Urine 1.009 (1.002-1.036); Squamous Epithelial 0-3 HPF (0-3); Urobilinogen Normal mg/dL (Less than 2); WBC/HPF 0-3 HPF (0-3); pH, Urine 5.5 (5.0-9.0)
[2023-04-11 21:59] LABS: Urine Culture Reflex No No
== END 2023-04-12 02:28 | disposition short-term general hospital (02) ==
LOC: ERS 18:04
DX: R51.9 Headache, unspecified (principal); R00.0 Tachycardia, unspecified; I48.91 Unspecified atrial fibrillation; E66.9 Obesity, unspecified; E11.9 Type 2 diabetes mellitus without complications; I10 Essential (primary) hypertension; Z79.899 Other long term (current) drug therapy
CPT/HCPCS: 71045; 80053; 81001; 83735; 84484; 85025; 93005; 96361; 96365; 96375; J1200; J1885; J2765

== ENCOUNTER 2023-10-30 11:30 | Emergency (ER) | payer BC | END 2023-10-30 16:37 | disposition home or self-care (01) | LOC: ERS 11:30 | DX: J18.9 Pneumonia, unspecified organism (principal); N39.0 Urinary tract infection, site not specified; I48.91 Unspecified atrial fibrillation; I10 Essential (primary) hypertension; E11.9 Type 2 diabetes mellitus without complications; M32.9 Systemic lupus erythematosus, unspecified; Z55.6 Problems related to health literacy | CPT/HCPCS: 36415; 71045; 80053; 81001; 84484; 85025; 93005; 96374; 96375; J1200; J1885; J2765 ==